=== PATIENT | female | born 1940 | race Caucasian/White ===

== ENCOUNTER → 2017-02-15 | Outpatient (CLI) | payer MEDICARE ==
[~2017-02-15] MED LIST: ASPI-1441 PO; BIMOD OP; DOXA8TAB62 PO; GEM600 PO; GEMF600T91 PO; GLI5 PO; GLIP-152 PO; INSU100I36 SQ; INSU300I SQ; IRBE300T11 PO; LABE200T31 PO; LOSA100T67 PO; MAX75 PO; MECL12.5 PO; METF-1 PO; METF-410 PO; MULT1TAB64 PO; PANT40TA65 PO; POTA20TA85 PO; POTA20TA94 PO; RANI-324 PO; TERA10CA44 PO; VERA240T12 PO; [UNRECOGNIZED DRUG - CODE] PO
== END ==
LOC: RESP 20:33
PROVIDERS: ATTEND Internal Medicine
DX: G47.33 Obstructive sleep apnea (adult) (pediatric) (principal); G47.61 Periodic limb movement disorder

== ENCOUNTER → 2017-04-16 | Outpatient (CLI) | payer MEDICARE ==
[2017-04-16 15:50] LABS: LDL CHOLESTEROL 73 mg/dl
== END ==
LOC: LAB 15:05
PROVIDERS: ATTEND Family Medicine
DX: E11.9 Type 2 diabetes mellitus without complications (principal); E87.6 Hypokalemia
CPT/HCPCS: 36415; 82040; 82247; 82310; 82374; 82435; 82465; 82565; 82947; 83036; 83718; 84075; 84132; 84155; 84295; 84450; 84460; 84478; 84520

== ENCOUNTER → 2017-05-26 | Outpatient (CLI) | payer MEDICARE ==
--- NOTE | 2017-05-27 09:02 | RADIOLOGY IMAGING REPORT ---
FACILITY: [facility] PATIENT NAME: LUCAS KERR : [id number] MR: [id number] V: [id number] EXAM DATE: [id number] ORDERING PHYSICIAN: ELVI ELIAS TECHNOLOGIST: Yaneth Martinez PROCEDURE:BILATERAL DIGITAL SCREENING MAMMOGRAM WITH CAD ASSISTED INTERPRETATION & 3D TOMOSYNTHESIS COMPARISON:Prior mammograms 05/21/16, 05/16/15, 05/12/14, 05/10/13, 05/07/12, 05/06/11. INDICATIONS:SCREENING FINDINGS: A small amount fibroglandular tissue is seen throughout the breasts. The parenchymal pattern has remained stable allowing for difference in mammographic technique & patient positioning. There is no evidence of malignant appearing mass, malignant appearing calcifications or other secondary sign of malignancy in either breast. DIAGNOSTIC CATEGORY 1--NEGATIVE. RECOMMENDATIONS: ROUTINE MAMMOGRAM AND CLINICAL EVALUATION. IMPRESSION: BIRADS 1: Negative No significant abnormality is seen. Dictated by: Sangeetha Carrillo M.D. on 05/26/2017 at 15:18 Transcribed by: FAVIAN on 05/26/2017 at 15:32 Approved by: Sangeetha Carrillo M.D. on 05/27/2017 at 9:01 [facility]
== END ==
LOC: MAMO 03:01
PROVIDERS: ATTEND Family Medicine
DX: Z12.31 Encounter for screening mammogram for malignant neoplasm of breast (principal)
CPT/HCPCS: 77063; 77067

== ENCOUNTER → 2017-08-25 | Outpatient (CLI) | payer MEDICARE ==
[~2017-08-25] MED LIST changes: -METF-410 PO; +METF-411 PO; +NEED-498 MC; -RANI-324 PO; +RANI-366 PO; +VERA180T53 PO
[2017-08-25 11:28] LABS: PLATELET COUNT, AUTOMATED 198 K/uL (150-450)
== END ==
LOC: LAB 11:00
PROVIDERS: ATTEND Family Medicine
DX: E11.9 Type 2 diabetes mellitus without complications (principal); I10 Essential (primary) hypertension
CPT/HCPCS: 36415; 82040; 82247; 82310; 82374; 82435; 82565; 82947; 83036; 84075; 84132; 84155; 84295; 84450; 84460; 84520; 85025

== ENCOUNTER → 2017-11-24 | Outpatient (CLI) | payer MEDICARE ==
[~2017-11-24] MED LIST changes: +ASPI-1471 PO; -GEMF600T91 PO; +GEMF600T92 PO; +HYDR12.561 PO; +LABE200T35 PO; -LOSA100T67 PO; +LOSA100T69 PO; -METF-411 PO; +METF-450 PO; +MULT-865 PO
== END ==
LOC: LAB 14:09
PROVIDERS: ATTEND Family Medicine
DX: I10 Essential (primary) hypertension (principal)
CPT/HCPCS: 36415; 82310; 82374; 82435; 82565; 82947; 84132; 84295; 84520

== ENCOUNTER → 2017-12-09 | Outpatient (CLI) | payer MEDICARE ==
[~2017-12-09] MED LIST changes: +SPIR25TA76 PO
== END ==
LOC: LAB 13:43
PROVIDERS: ATTEND Family Medicine
DX: I10 Essential (primary) hypertension (principal)
CPT/HCPCS: 36415; 82310; 82374; 82435; 82565; 82947; 84132; 84295; 84520

== ENCOUNTER → 2017-12-25 | Outpatient (CLI) | payer MEDICARE | LOC: LAB 14:30 | PROVIDERS: ATTEND Family Medicine | DX: I10 Essential (primary) hypertension (principal) | CPT/HCPCS: 36415; 82310; 82374; 82435; 82565; 82947; 84132; 84295; 84520 ==

== ENCOUNTER 2018-01-27 09:45 | Outpatient (RCR) | payer MEDICARE ==
--- NOTE | 2017-12-30 18:43 | PT INITIAL EVALUATION ---
MEDICAL DIAGNOSIS: M25.511 R shoulder pain, unspecified chronicity, M89.8X1 Shoulder blade pain TREATMENT DIAGNOSIS: Same, R rotator cuff tendinitis DATE OF ONSET: 08/24/17 SUBJECTIVE: Monalisa Florez presents to PT for insidious onset of R shoulder pain at vasquez glenohumeral joint and at times at the scapula. She's right-handed. She denies a history of R shoulder or cervical injury. Pain is an ache, 2- 5/10, disrupts sleep, makes reaching into upper cupboards/shelves, carrying 1 gallon water painful and difficult. Quick DASH 18% impairment. Monalisa relates she was seen at [facility] "years ago" for B hand and feet numbness and had her upper thoracic and lower cervical spine treated with PT, which resolved her paresthesia. 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 OCCUPATION: Retired, lives with her . Carrying heavy sacks of groceries creates the most R shoulder pain. OBJECTIVE: Posture: Protracted and depressed R shoulder, mild forward head and increased thoracic kyphosis. ROM: A/PROM R shoulder, in degrees: flexion 105/160, scaption 125/165, ER 73/85, IR T9/30 (at 90 deg.). Cervical AROM 75% rotation B, extension full but tight lower cervical extension. Strength: Supraspinatus 3+/5, pain limited, infraspinatus 4/5, pain limited, IR 5-/5, mendez muscles C5/6/7 intact for motor function. Palpation: Painful R upper rotator cuff tendons, tight R anterior chest, scaleni. Special Tests: Negative crank, scour, drawers, positive empty can. Mobility: Hypomobile R shoulder complex. ASSESSMENT: Monalisa Florez presents wtih R rotator cuff tendinitis, affecting strength, creating pain, and affecting sleep and reaching/carrying ADL's. She did well with gentle manual therapy to improve R shoulder protraction and is started on a shoulder HEP. We'll start with gentle manual therapy, stretching and muscle balancing strengthening, HEP, modalities as needed for pain. Short Term Goals/Patient's Goals: 4 weeks: Monalisa reports she's sleeping without R shoulder pain, carries R1 gallon water with R shoulder pain 3/10. 6 weeks: Monalisa relates she can carry 1 gallon of water with R shoulder pain 0-03/05. PLAN: Patient to be seen for Manual Therapy, Strengthening/condition, Ice/Heat, Range of Motion, Stretching, Electrical Stim, Home Exercise Program 2x/Week for 6 Weeks Thank you for this referral. If you have any questions, comments, or concerns about this report or plan, please contact me at . [facility]
[~2018-01-27 09:45] MED LIST changes: -GEMF600T92 PO; +GEMF600T96 PO; -LOSA100T69 PO; +LOSA100T75 PO
--- NOTE | 2018-02-03 17:17 | PT PLAN OF CARE ---
Physician: Dr. Joan Soto Patient is being seen: 2x/week Therapist: Vira Grier, PT Medical Diagnosis: M25.511 R shoulder pain, unspecified chronicity, M89.8X1 Shoulder blade pain Treatment Diagnosis: Same, R rotator cuff tendinitis Date of Onset: 08/24/17 Date of Initial Evaluation: 12/30/17 Date patient was last seen: 01/27/18 Number of treatments: 7 Number of cancellations/No shows: 1 INTERVENTIONS: Manual Therapy/STM/MET Strengthening/condition Ice/Heat Range of Motion Stretching Electrical Stim Home Exercise Program GOALS/PATIENT'S GOAL: 4 weeks: Monalisa reports she's sleeping without R shoulder pain, carries R1 gallon water with R shoulder pain 3/10. 6 weeks: Monalisa relates she can carry 1 gallon of water with R shoulder pain 0-1/10. Patient Compliance: Excellent Prognosis: Excellent Reasons for discontinuing therapy: S: Monalisa is admitted to [facility] due to illness. At her last visit here, she reported minimal R shoulder pain, sleeping without R shoulder pain. O: At last visit, L shoulder AROM 90 deg and PROM L shoulder flexion 180 degrees. Rotator cuff was still sore with light exercise. A/P: Monalisa Florez was improving R shoulder function (sleep) with PT. As she's as inpatient admission, I need to DC outpatient PT. If you'd like Monalisa to return to PT in the future, I'd be happy to work with her. Thank you. BORIS
== END 2018-01-27 18:00 | disposition home or self-care (01) ==
LOC: PT 09:45
PROVIDERS: ATTEND Family Medicine
DX: M25.511 Pain in right shoulder (principal); M89.8X1 Other specified disorders of bone, shoulder
CPT/HCPCS: 97162

== ENCOUNTER → 2018-01-28 | Outpatient (CLI) | payer MEDICARE ==
[~2018-01-28] MED LIST changes: +GEMF600T92 PO; -GEMF600T96 PO; +LOSA100T69 PO; -LOSA100T75 PO
== END ==
LOC: LAB 14:21
PROVIDERS: ATTEND Family Medicine
DX: E11.9 Type 2 diabetes mellitus without complications (principal); I10 Essential (primary) hypertension
CPT/HCPCS: 82310; 82374; 82435; 82565; 82947; 83036; 84132; 84295; 84520

== ENCOUNTER 2018-02-03 10:46 | Inpatient (IN) | payer MEDICARE ==
[~2018-02-03] VITALS: Ht 142.2 cm; Wt 70.5 kg
[~2018-02-03 10:46] MED LIST changes: -GEMF600T92 PO; +GEMF600T96 PO; -LOSA100T69 PO; +LOSA100T75 PO
--- NOTE | 2018-02-03 10:53 | ER Report ---
History and Physical Time Seen By MD: 10:53 HPI/ROS CHIEF COMPLAINT: Weakness, dehydration, shortness breath HISTORY OF PRESENT ILLNESS: Patient is a 77-year-old female with a history of diabetes, hypertension, reported heart failure here with complaints of shortness breath with initial oxygen saturation of 86% on room air only requiring noct urnal oxygen at baseline, was sent in by her PCP office after he fell on-call at which time she was complaining of fatigue, general malaise and was noted to be altered. Patient reports that since she has been having decreased by mouth intake, cough productive of white sputum, shortness of breath, general malaise, lethargy. Patient is alert and oriented though notably lethargic. Patient is afebrile at time of evaluation, hypotensive. REVIEW OF SYSTEMS: Constitutional: + fever, + chills. Eyes: No discharge. ENT: No sore throat, + dry mouth Cardiovascular: No chest pain, no palpitations. Respiratory: + cough, + shortness of breath. Gastrointestinal: No abdominal pain, no vomiting. Genitourinary: No hematuria. Musculoskeletal: No back pain. Skin: No rashes. Neurological: No headache. Allergies: Coded Allergies: procaine (Verified Allergy, Mild, PASSED OUT, 02/03/18) benazepril (Verified Adverse Reaction, Mild, COUGH, 02/03/18) Home Meds Active Scripts Spironolactone (ALDACTONE) 25 Mg Tablet, 1 TAB PO QDAY for 30 Days, #30 TAB Prov:ELVI ELIAS MD 01/06/18 Insulin Glargine,Hum.rec.anlog (Katharine Melendez) 300 Unit/1 Ml Insuln.pen, 8 UNITS SQ QAM, #2 BOX 3 Refills Prov:ELVI ELIAS MD 11/18/17 Metformin Hcl (METFORMIN HCL) 500 Mg Tablet, 1 TAB PO TID, #270 TAB 1 Refill Prov:ELVI ELIAS MD 11/18/17 Ranitidine Hcl (ZANTAC) 150 Mg Tablet, 150 MG PO BID for hiatal hernia for 90 Days, #180 TAB 4 Refills Prov:ELVI ELIAS MD 08/25/17 Verapamil Hcl (VERAPAMIL ER) 180 Mg Tablet.er, 180 MG PO BID for 90 Days, #180 TAB 4 Refills Prov:ELVI ELAIS MD 06/26/17 Terazosin Hcl (TERAZOSIN HCL) 10 Mg Capsule, 10 MG PO DAILY for 90 Days, #90 CAPSULE 4 Refills Prov:ELVI ELIAS MD 06/26/17 [place], Insulin Disposable (INSULIN PEN NEEDLE) 1 Each Dis.needle, EACH MC DIRECTED, #100 4 Refills Pen needles, patients preference in length Please send box of 100 pluse 4 refills Prov:ELVI ELIAS MD 06/26/17 Labetalol Hcl (LABETALOL HCL) 200 Mg Tablet, 3 TAB PO BID, #540 TAB 4 Refills Prov:ELVI ELIAS MD 05/19/17 Reported Medications Losartan Potassium (LOSARTAN POTASSIUM) 100 Mg Tablet, 100 MG PO QDAY 02/03/18 Potassium Chloride (KLOR-CON M20) 20 Meq Tab.er.prt, 1 TAB PO DAILY 02/03/18 Multivitamin (DAILY MULTIPLE VITAMIN) 1 Each Tablet, 1 TAB PO DAILY 11/24/17 Aspirin (ASPIR 81) 81 Mg Tablet.dr, 1 TAB PO QDAY, TAB 11/24/17 Discontinued Scripts Losartan Potassium (LOSARTAN POTASSIUM) 100 Mg Tablet, 1 TAB PO QDAY for 90 Days, #90 TAB 4 Refills Prov:ELVI ELIAS MD 08/25/17 Hx Smoking: No Smoking Status: Never Smoker Hx Alcohol Use: Yes (no longer uses due to diabetes & insulin) Constitutional Vital Sign - Last 24 Hours 02/03/18 02/03/18 02/03/18 02/03/18 10:47 11:08 11:31 11:31 Temp 97.7 Pulse 73 74 Resp 36 18 B/P (MAP) 93/53 Pulse Ox 92 94 O2 Delivery Nasal Cannula Nasal Cannula O2 Flow Rate 3.0 3.0 Physical Exam General Appearance: The patient is alert, has no immediate need for airway protection and no signs of toxicity. Moderate distress Eyes: Pupils equal and round no pallor or injection. ENT, Mouth: Mucous membranes are moist. Respiratory: + decreased BS without wheezes Cardiovascular: Regular rate and rhythm. Gastrointestinal: Abdomen is soft and non tender, no masses, bowel sounds normal. Neurological: Lethargic with no focal neuro deficits Skin: Warm and dry, no rashes. Musculoskeletal: Neck is supple non tender. Extremities are nontender, nonswollen and have full range of motion. DIFFERENTIAL DIAGNOSIS: After history and physical exam differential diagnosis was considered for pneumonia, CHF exacerbation, bronchitis, dehydration, electro lyte abnormality Medical Decision Making Data Points Result Diagram: 02/03/18 1055 02/03/18 1055 Laboratory Hematology Test 02/03/18 10:55 02/03/18 11:28 Red Blood Count 3.78 M/uL (4.17-5.56) Mean Corpuscular Volume 85.6 fL (80.0-96.0) Mean Corpuscular Hemoglobin 28.5 pg (26.0-33.0) Mean Corpuscular Hemoglobin Concent 33.3 g/dL (32.0-36.0) Red Cell Distribution Width 14.5 % (11.5-14.5) Mean Platelet Volume 8.7 fL (7.2-11.1) Neutrophils (%) (Auto) 90.5 % (39.4-72.5) Lymphocytes (%) (Auto) 2.2 % (17.6-49.6) Monocytes (%) (Auto) 5.4 % (4.1-12.4) Eosinophils (%) (Auto) 1.6 % (0.4-6.7) Basophils (%) (Auto) 0.3 % (0.3-1.4) Nucleated RBC Relative Count (auto) 0.1 /100WBC Neutrophils # (Auto) 19.1 K/uL (2.0-7.4) Lymphocytes # (Auto) 0.5 K/uL (1.3-3.6) Monocytes # (Auto) 1.1 K/uL (0.3-1.0) Eosinophils # (Auto) 0.3 K/uL (0.0-0.5) Basophils # (Auto) 0.1 K/uL (0.0-0.1) Nucleated RBC Absolute Count (auto) 0.02 K/uL Peripheral Blood Smear Yes Y/N Sodium Level 127 mmol/L (137-145) Potassium Level 5.1 mmol/L (3.5-5.0) Chloride Level 101 mmol/L (98-107) Carbon Dioxide Level 13 mmol/L (22-31) Blood Urea Nitrogen 93 mg/dl (7-18) Creatinine 3.00 mg/dl (0.52-1.04) Glomerular Filtration Rate Calc 15.1 Random Glucose 316 mg/dl (75-110) Lactate 2.9 mmol/L (0.7-2.1) Calcium Level 9.6 mg/dl (8.4-10.2) Total Bilirubin 0.6 mg/dl (0.2-1.3) Aspartate Amino Transf (AST/SGOT) 21 U/L (0-35) Alanine Aminotransferase (ALT/SGPT) 33 U/L (0-56) Alkaline Phosphatase 128 U/L (0-126) Troponin I 0.012 ng/ml B-Type Natriuretic Peptide 613 pg/ml (0-100) Total Protein 5.9 g/dl (6.3-8.2) Albumin 2.8 g/dl (3.5-5.0) Blood Gas Patient Temperature 97.7 DEGREES Venous Blood pH 7.26 (7.31-7.41) Venous Blood Partial Pressure CO2 26 mmHg Venous Blood Partial Pressure O2 63 mmHg Venous Blood HCO3 11 mmol/L Venous Blood Oxygen Saturation 90 % Venous Blood Base Excess -16 mmol/L Oxygen Liters/Minute 3l Chemistry Test 02/03/18 10:55 02/03/18 11:28 White Blood Count 21.1 k/uL (4.5-11.0) Red Blood Count 3.78 M/uL (4.17-5.56) Hemoglobin 10.8 g/dL (12.0-16.0) Hematocrit 32.3 % (34.0-47.0) Mean Corpuscular Volume 85.6 fL (80.0-96.0) Mean Corpuscular Hemoglobin 28.5 pg (26.0-33.0) Mean Corpuscular Hemoglobin Concent 33.3 g/dL (32.0-36.0) Red Cell Distribution Width 14.5 % (11.5-14.5) Platelet Count 133 K/uL (150-450) Mean Platelet Volume 8.7 fL (7.2-11.1) Neutrophils (%) (Auto) 90.5 % (39.4-72.5) Lymphocytes (%) (Auto) 2.2 % (17.6-49.6) Monocytes (%) (Auto) 5.4 % (4.1-12.4) Eosinophils (%) (Auto) 1.6 % (0.4-6.7) Basophils (%) (Auto) 0.3 % (0.3-1.4) Nucleated RBC Relative Count (auto) 0.1 /100WBC Neutrophils # (Auto) 19.1 K/uL (2.0-7.4) Lymphocytes # (Auto) 0.5 K/uL (1.3-3.6) Monocytes # (Auto) 1.1 K/uL (0.3-1.0) Eosinophils # (Auto) 0.3 K/uL (0.0-0.5) Basophils # (Auto) 0.1 K/uL (0.0-0.1) Nucleated RBC Absolute Count (auto) 0.02 K/uL Peripheral Blood Smear Yes Y/N Glomerular Filtration Rate Calc 15.1 Lactate 2.9 mmol/L (0.7-2.1) Calcium Level 9.6 mg/dl (8.4-10.2) Total Bilirubin 0.6 mg/dl (0.2-1.3) Aspartate Amino Transf (AST/SGOT) 21 U/L (0-35) Alanine Aminotransferase (ALT/SGPT) 33 U/L (0-56) Alkaline Phosphatase 128 U/L (0-126) Troponin I 0.012 ng/ml B-Type Natriuretic Peptide 613 pg/ml (0-100) Total Protein 5.9 g/dl (6.3-8.2) Albumin 2.8 g/dl (3.5-5.0) Blood Gas Patient Temperature 97.7 DEGREES Venous Blood pH 7.26 (7.31-7.41) Venous Blood Partial Pressure CO2 26 mmHg Venous Blood Partial Pressure O2 63 mmHg Venous Blood HCO3 11 mmol/L Venous Blood Oxygen Saturation 90 % Venous Blood Base Excess -16 mmol/L Oxygen Liters/Minute 3l EKG/Imaging EKG Interpretation Test Reason : SOB Blood Pressure : / mmHG Vent. Rate : 074 BPM Atrial Rate : 074 BPM P-R Int : 270 ms QRS Dur : 092 ms QT Int : 362 ms P-R-T Axes : 063 -52 051 degrees QTc Int : 401 ms Sinus rhythm with 1st degree AV block Left anterior fascicular block Moderate voltage criteria for LVH, may be normal variant Abnormal ECG When compared with ECG of 18-AUG-2013 10:18, QT has shortened Monitor Interpretation: Normal Sinus Rhythm Imaging Location: [facility] [place] Patient: Monalisa Florez : 1940 Visit/Account:[id number] Date of Sevice: 02/03/2018 Exam type: CHEST PA AND LAT History: RESP DISTRESS Comparison: None. Findings: Coarse linear stranding in the lower lung andres, left greater than right may represent scarring, atelectasis or developing infiltrates. There are no prior studies available. There is mild blunting the left costophrenic angle consistent with pleural thickening versus small pleural effusion. Cardiac silhouette is moderately enlarged. There is moderate ectasia the thoracic aort a. Extensive spondylotic changes of the thoracic spine are present IMPRESSION: 1. Coarsening stranding lower lung andres, left greater than right may represent scarring, atelectasis or developing infiltrates (are no prior studies available) Mild blunting left costophrenic angle consistent with pleural thickening versus small pleural effusion ED Course/Re-evaluation ED Course Patient is a 77-year-old female here with dehydration, decreased by mouth intake, cough, shortness of breath initially hypoxic per EMS on room air with no prior tirawl-ysa-inhid oxygen requirement. Patient was markedly dehydrated at time of evaluation with a leukocytosis of 21,000. Patient was noted to have acute renal failure likely prerenal in etiology. She was presumptively diagnosed with pneumonia and administered antimicrobial coverage and admitted to the hospitalist service in stable condition. Decision to Disposition Date: Feb 03, 2018 Decision to Disposition Time: 12:00 Depart Departure Latest Vital Signs Vital Signs Date Time Temp Pulse Resp B/P (MAP) Pulse Ox O2 Delivery O2 Flow Rate FiO2 02/03/18 11:31 94 Nasal Cannula 3.0 02/03/18 11:31 74 18 02/03/18 10:47 97.7 93/53 Impression: Primary Impression: ARF (acute renal failure) Additional Impression: Pneumonia, bacterial Condition: Condition Unchanged Disposition: Admitted from ER Referrals: ELVI ELIAS MD (PCP) Problem Qualifiers ISAMAR MAYNARD DO Feb 03, 2018 10:53
[2018-02-03] MEDS ORDERED: NS(*) 0.9% 500 ML BAG 500 ML IV ONE ×2 (11:01→22:05)
[2018-02-03] MEDS ORDERED: ALBUTEROL/IPRATROPIUM 3 ML NEB NEB ONE (11:05)
[2018-02-03 11:17] LABS: PLATELET COUNT, AUTOMATED 133 K/uL (150-450)
[2018-02-03] MEDS ORDERED: NS(*) 0.9% 1000 ML BAG 1,000 ML IV ONE (11:40)
[2018-02-03] MEDS ORDERED: VANCOMYCIN 1 GM ADDVIAL 1 GM in NS(*) 0.9% 250 ML ADDVAN BAG 250 ML IVPB ONE (11:50)
[2018-02-03] MEDS ORDERED: CEFEPIME HCL 1 GM VIAL IVP ONE (11:50)
--- NOTE | 2018-02-03 11:53 | RADIOLOGY IMAGING REPORT ---
FACILITY: [facility] PATIENT NAME: Monalisa Florez : 1940 MR: [id number] V: [id number] EXAM DATE: ORDERING PHYSICIAN: ISAMAR MAYNARD TECHNOLOGIST: [place] [facility] [place]: Monalisa Florez : 1940 Visit/Account:[id number] Date of Sevice: 02/03/2018 Exam type: CHEST PA AND LAT History: RESP DISTRESS Comparison: None. Findings: Coarse linear stranding in the lower lung andres, left greater than right may represent scarring, ate lectasis or developing infiltrates. There are no prior studies available. There is mild blunting th e left costophrenic angle consistent with pleural thickening versus small pleural effusion. Cardiac silhouette is moderately enlarged. There is moderate ectasia the thoracic aorta. Extensive spondylo tic changes of the thoracic spine are present IMPRESSION: 1. Coarsening stranding lower lung andres, left greater than right may represent scarring, atelectas is or developing infiltrates (are no prior studies available) Mild blunting left costophrenic angle consistent with pleural thickening versus small pleural effusio n Report Dictated By: Sangeetha Carrillo MD at 02/03/2018 11:47 AM Report E-Signed By: Sangeetha Carrillo MD at 02/03/2018 11:49 AM WSN:MAYA
[2018-02-03] MEDS ORDERED: VANCOMYCIN(*) 1 GM VIAL 2 GM in NS(*) 0.9% 500 ML BAG 500 ML IVPB ONE (12:30)
[2018-02-03] MEDS ORDERED: ALBUTEROL 2.5 MG/3 ML NEB NEB PRN (12:55)
[2018-02-03] MEDS ORDERED: VANCOMYCIN(*) 1 GM VIAL 2 GM in NS(*) 0.9% 250 ML BAG 250 ML IVPB ONE (13:00)
[2018-02-03] MEDS ORDERED: POTA20TA85 PO (13:01)
[2018-02-03] MEDS ORDERED: LOSA100T75 PO (13:03)
[2018-02-03 13:17] VITALS: BP 107/57
--- NOTE | 2018-02-03 13:46 | History & Physical ---
History of Present Illness History of Present Illness 77yo female with T2DM and BASIL who came to the ER because of confusion and cough. She reports that she was in her normal state of health until about 5 days prior to admission. Then she developed tiredness and had some diarrhea. The diarrhea didn't persist, but the tiredness has worsened and she is sleeping a lot. She then developed a productive cough with whitish sputum a couple of days ago. She reports not drinking as much as she should related to trying to take care of her and being so tired. She denies CP/BEATTY/f/c/dysuria/nausea/vomiting. She has felt more bloated in the abdomen. She called her PCP's office today and she sounded confused, so they had her go to the ER. In the ER, she was mildly hypoxic on RA in the mid s. She was given Cefepime and IVF. History Problems: (1) BASIL (obstructive sleep apnea) (2) Caregiver stress Status: Chronic (3) HTN (hypertension) Status: Chronic (4) DM2 (diabetes mellitus, type 2) Status: Acute (5) Hypertension Home Meds Active Scripts Spironolactone (ALDACTONE) 25 Mg Tablet, 1 TAB PO QDAY for 30 Days, #30 TAB Prov:ELVI ELIAS MD 01/06/18 Insulin Glargine,Hum.rec.anlog (Katharine Melendez) 300 Unit/1 Ml Insuln.pen, 8 UNITS SQ QAM, #2 BOX 3 Refills Prov:ELVI ELIAS MD 11/18/17 Metformin Hcl (METFORMIN HCL) 500 Mg Tablet, 1 TAB PO TID, #270 TAB 1 Refill Prov:ELVI ELIAS MD 11/18/17 Ranitidine Hcl (ZANTAC) 150 Mg Tablet, 150 MG PO BID for hiatal hernia for 90 Days, #180 TAB 4 Refills Prov:ELVI ELIAS MD 08/25/17 Verapamil Hcl (VERAPAMIL ER) 180 Mg Tablet.er, 180 MG PO BID for 90 Days, #180 TAB 4 Refills Prov:ELVI ELIAS MD 06/26/17 Terazosin Hcl (TERAZOSIN HCL) 10 Mg Capsule, 10 MG PO DAILY for 90 Days, #90 CAPSULE 4 Refills Prov:ELVI ELIAS MD 06/26/17 [place], Insulin Disposable (INSULIN PEN NEEDLE) 1 Each Dis.needle, EACH MC DIRECTED, #100 4 Refills Pen needles, patients preference in length Please send box of 100 pluse 4 refills Prov:ELVI ELIAS MD 06/26/17 Labetalol Hcl (LABETALOL HCL) 200 Mg Tablet, 3 TAB PO BID, #540 TAB 4 Refills Prov:ELVI ELIAS MD 05/19/17 Reported Medications Losartan Potassium (LOSARTAN POTASSIUM) 100 Mg Tablet, 100 MG PO QDAY 02/03/18 Potassium Chloride (KLOR-CON M20) 20 Meq Tab.er.prt, 1 TAB PO DAILY 02/03/18 Multivitamin (DAILY MULTIPLE VITAMIN) 1 Each Tablet, 1 TAB PO DAILY 11/24/17 Aspirin (ASPIR 81) 81 Mg Tablet.dr, 1 TAB PO QDAY, TAB 11/24/17 Discontinued Scripts Losartan Potassium (LOSARTAN POTASSIUM) 100 Mg Tablet, 1 TAB PO QDAY for 90 Days, #90 TAB 4 Refills Prov:ELVI ELIAS MD 08/25/17 Potassium Chloride (POTASSIUM CHLORIDE) 20 Meq Tab.er.prt, 1 TAB PO BID for 90 Days, #180 TAB 2 Refills Prov:ELVI ELIAS MD 10/23/17 Allergies: Coded Allergies: procaine (Verified Allergy, Mild, PASSED OUT, 02/03/18) benazepril (Verified Adverse Reaction, Mild, COUGH, 02/03/18) Other Social/Family Hx Lives with her and is his primary direct care staffer. He has fairly advanced dementia Hx Smoking: No Smoking Status: Never Smoker Caffeine Intake: Coffee, Tea Caffeine/Cups Per Day: RARE USE Hx Alcohol Use: Yes (no longer uses due to diabetes & insulin) Hx Substance Use Disorder: No Review of Systems All Systems Reviewed/Normal: Yes, Except as Noted Exam Vital Signs Vital Signs Date Time Temp Pulse Resp B/P (MAP) Pulse Ox O2 Delivery O2 Flow Rate FiO2 02/03/18 11:31 94 Nasal Cannula 3.0 02/03/18 11:31 74 18 02/03/18 10:47 97.7 93/53 General Appearance: Alert, Awake, No Acute Distress (Normal wob) Neuro: No Gross deficits Eyes: PERRLA ENT: Other (Dry MM) Cardiovascular: Regular Rate and Rhythm, No JVD Respiratory: Other (Moves air well to bases. Biabsliar insp crackles, but w orse on the left) GI: Abd Soft and Non-Tender Extremities: No Edema Integumentary: No Jaundice, No Cyanosis Medical Decision Making Data Points Result Diagram: 02/03/18 1055 02/03/18 1055 Item Value Date Time Lactate 2.9 mmol/L H 02/03/18 1055 Calcium Level 9.6 mg/dl 02/03/18 1055 Total Bilirubin 0.6 mg/dl 02/03/18 1055 Aspartate Amino Transf (AST/SGOT) 21 U/L 02/03/18 1055 Alanine Aminotransferase (ALT/SGPT) 33 U/L 02/03/18 1055 Alkaline Phosphatase 128 U/L H 02/03/18 1055 Troponin I 0.012 ng/ml 02/03/18 1055 B-Type Natriuretic Peptide 613 pg/ml H 02/03/18 1055 Total Protein 5.9 g/dl L 02/03/18 1055 Albumin 2.8 g/dl L 02/03/18 1055 Neutrophils (%) (Auto) 90.5 % H 02/03/18 1055 Lymphocytes (%) (Auto) 2.2 % L 02/03/18 1055 Monocytes (%) (Auto) 5.4 % 02/03/18 1055 Eosinophils (%) (Auto) 1.6 % 02/03/18 1055 Basophils (%) (Auto) 0.3 % 02/03/18 1055 Nucleated RBC Relative Count (auto) 0.1 /100WBC 02/03/18 1055 Venous Blood pH 7.26 L 02/03/18 1128 Venous Blood Partial Pressure O2 63 mmHg 02/03/18 1128 Venous Blood Partial Pressure CO2 26 mmHg 02/03/18 1128 Venous Blood HCO3 11 mmol/L 02/03/18 1128 Venous Blood Oxygen Saturation 90 % 02/03/18 1128 EKG / Imaging Imaging CXR - 1. Coarsening stranding lower lung andres, left greater than right may represent scarring, atelectasis or developing infiltrates (are no prior studies available) Mild blunting left costophrenic angle consistent with pleural thickening versus small pleural effusion Assessment and Plan Problems: (1) Pneumonia, bacterial Status: Acute Assessment & Plan: She presented with 5 days of progressive tiredness causing decreased oral intake and a couple days of productive cough. She was found to be borderline hypotensive, mildly hypoxic and very dehydrated. She has a leukocytosis, elevated lactate, elevated creatinine and left basilar infiltrate on CXR. She is getting IVF and will be changed from Cefepime to Ceftriaxone and Azithromycin. Recheck lactate. (2) ARF (acute renal failure) Status: Acute Assessment & Plan: Baseline creatinine is 0.9-1.0. Currently, she is 3.0. Likely, secondary to dehydration. Will follow closely. (3) DM2 (diabetes mellitus, type 2) Status: Acute Assessment & Plan: She normally has a fairly well controlled diabetes. Currently, holding her chronic Toujeo and metformin. She was mildly acidotic with a low bicarbonate and an AG of 13. Will recheck BMP and check a serum a cetone. For now will, will use SSI level 2 to cover, but if it appears like she is in DKA, then will likely need an insulin drip. (4) Elevated brain natriuretic peptide (BNP) level Status: Acute Assessment & Plan: Likely, related to the strain of illness. No signs or symptoms c/w CHF exacerbation. No h/o CHF. Will recheck CXR and BNP in the morning. (5) Caregiver stress Status: Chronic Assessment & Plan: She take care of her who has fairly advanced dem entia. Dr. Elias is looking into care options for him while the patient is in the hospital. (6) HTN (hypertension) Status: Chronic Assessment & Plan: Chronically on verapamil, spironolactone, losartan and labetalol. All will be held for now. (7) GERD (gastroesophageal reflux disease) Status: Chronic Assessment & Plan: Continue chronic ranitidine. (8) BASIL (obstructive sleep apnea) Status: Chronic Assessment & Plan: Continue CPAP at 6cm H20 pressure, like at home. Copies to: ELVI ELIAS MD ; Venous Thromboembolism Antithrombotics Is Pt On Any Antithrombotics?: No Exam Sepsis Risk: No Definite Risk MARTHA MENDIOLA MD Feb 03, 2018 13:46
[2018-02-03] MEDS: AZITHROMYCIN(*) 500 MG 500 MG in NS(*) 0.9% 250 ML BAG 250 ML IVPB SCH (13:47)
--- NOTE | 2018-02-03 14:08 | EKG ---
FACILITY: [facility] PATIENT NAME: LUCAS KERR : [id number] MR: [id number] V: [id number] EXAM DATE: ORDERING PHYSICIAN: ISAMAR MAYNARD TECHNOLOGIST: Test Reason : SOB Blood Pressure : / mmHG Vent. Rate : 074 BPM Atrial Rate : 074 BPM P-R Int : 270 ms QRS Dur : 092 ms QT Int : 362 ms P-R-T Axes : 063 -52 051 degrees QTc Int : 401 ms Sinus rhythm with 1st degree AV block R wave progression consistent with old ant/sep PA vs lead placement Moderate voltage criteria for LVH, may be normal variant Abnormal ECG When compared with ECG of 18-AUG-2013 10:18, Relatively unchanged Confirmed by MARTHA MENDIOLA ([id number]) on 02/03/2018 4:41:01 PM Referred By: Confirmed By:MARTHA MENDIOLA
[2018-02-03] MEDS: NS(*) 0.9% 1000 ML BAG 1,000 ML IV PRN ×2 (16:11→23:15)
[2018-02-03 17:31] VITALS: BP 117/61
[2018-02-03] MEDS: INSULIN HUM LISPRO 100 UN/ML 3 ML VIAL SUBQ PRN (17:36)
[2018-02-03] MEDS: ACETAMINOPHEN 500 MG TAB PO PRN (18:13)
[2018-02-03 19:24] VITALS: BP 105/57
[2018-02-03] MEDS: RANITIDINE HCL 150 MG TAB PO SCH (20:13)
[2018-02-03 23:57] VITALS: BP 108/56
[2018-02-04 06:01] LABS: PLATELET COUNT, AUTOMATED 112 K/uL (150-450)
--- NOTE | 2018-02-04 06:24 | RADIOLOGY IMAGING REPORT ---
FACILITY[place] [facility] [place]IENT NAME: Monalisa Florez : 1940 MR: [id number] V: [id number] EXAM DATE: ORDERING PHYSICIAN: MARTHA MENDIOLA TECHNOLOGIST: Location: [facility] - [place] Patient: Monalisa Florez : 1940 Visit/Account:[id number] Date of Sevice: 02/04/2018 PORTABLE CHEST: Indication: Hypoxia. Technique: A single frontal film was obtained. Comparison: 02/03/2018 Skeletal and soft tissue structures: Intact and unremarkable. Heart and mediastinum: Stable mild cardiomegaly. Lung andres: There are persistent linear opacities at the left base, compatible with atelectasis or r esolving pneumonia. The right base has improved. No new focal opacities are identified. Pleural spaces: No evidence of pneumothorax. Possible small left effusion. Impression: Improving basilar opacities. Report Dictated By: Dagoberto Avalos MD at 02/04/2018 6:18 AM Report E-Signed By: Dagoberto Avalos MD at 02/04/2018 6:20 AM WSN:[id number]
[2018-02-04] MEDS: INSULIN HUM LISPRO 100 UN/ML 3 ML VIAL SUBQ PRN ×4 (07:43→20:48)
[2018-02-04] MEDS: RANITIDINE HCL 150 MG TAB PO SCH ×2 (09:13→20:48)
[2018-02-04] MEDS: cefTRIAXone(*) 2 GM VIAL 2 GM in NS(*) 0.9% 100 ML ADDVANT BAG 100 ML IVPB SCH (09:13)
[2018-02-04] MEDS: ENOXAPARIN 30 MG/0.3 ML SYR SC SCH (09:13)
--- NOTE | 2018-02-04 09:35 | Hospitalist Progress Note ---
Subjective Progress Notes Subjective 77F admitted for AMS, sepsis. Improved mentation this am, discussed will be 2-3 more days on IV antibiotics and will need 2 weeks total on discharge. Patient Complains of: Neurological: No: Confusion Gastrointestinal: No Nausea, No Vomiting Physical Exam Vital Signs Date Time Temp Pulse Resp B/P (MAP) Pulse Ox O2 Delivery O2 Flow Rate FiO2 02/04/18 02:04 50.0 02/03/18 23:57 97.8 73 16 108/56 (73) 98 Bi-PAP 02/03/18 20:15 3.0 Intake and Output 02/04/18 07:00 Intake Total 2968 ml Balance 2968 ml Intake Oral 200 ml IV Total 2768 ml # Voids 2 # Bowel Movements 2 General Appearance: Alert, Awake, No Acute Distress Neuro: No Gross deficits Eyes: PERRLA ENT: Normal Cardiovascular: Normal Rhythm & Peripheral Pulses Respiratory: No Respiratory Distress (3L O2 via NC) GI: Soft and Non-Tender Musculoskeletal: No Weakness/Pain Extremities: Soft and Non Tender, Warm, Pulses, Perfused; No Edema Integumentary: Skin Intact without Lesion / Mass Psych: Alert & Oriented X3 Result Diagram: 02/04/1852602/04/18526 Assessment and Plan Problems: (1) Pneumonia, bacterial Status: Acute Assessment & Plan: She presented with 5 days of progressive tiredness causing decreased oral intake and a couple days of productive cough. She was found to be borderline hypotensive, mildly hypoxic and very dehydrated. She has a leukocytosis, elevated lactate, elevated creatinine and left basilar infiltrate on CXR. She is getting IVF and Ceftriaxone and Azithromycin. (2) ARF (acute renal failure) Status: Acute Assessment & Plan: Baseline creatinine is 0.9-1.0. Currently, she is 3.0. Likely, secondary to dehydration. Remains elevated with slight improvement. (3) Metabolic acidosis Assessment & Plan: Mild, NAGMA. Bicarb remains low will change fluid to 150meq bicarb/D5W. Recheck BMP this PM. (4) DM2 (diabetes mellitus, type 2) Status: Acute Assessment & Plan: She normally has a fairly well controlled diabetes. Currently, holding her chronic Toujeo and metformin. She was mildly acidotic with a low bicarbonate and an AG of 13. Will recheck BMP and check a serum acetone. For now will, will use SSI level 2 to cover, but if it appears like she is in DKA, then will likely need an insulin drip. (5) Elevated brain natriuretic peptide (BNP) level Status: Acute Assessment & Plan: Likely, related to the strain of illness. No signs or symptoms c/w CHF exacerbation. No h/o CHF. (6) Caregiver stress Status: Chronic Assessment & Plan: She take care of her who has fairly advanced dementia. Dr. Soto is looking into care options for him while the patient is in the hospital. (7) HTN (hypertension) Status: Chronic Assessment & Plan: Chronically on verapamil, spironolactone, losartan and labetalol. All will be held for now. (8) GERD (gastroesophageal reflux disease) Status: Chronic Assessment & Plan: Continue chronic ranitidine. (9) BASIL (obstructive sleep apnea) Status: Chronic Assessment & Plan: Continue CPAP at 6cm H20 pressure, like at home. Exam Sepsis Risk: No Definite Risk CARVALHO BALDOMERO GRAYSON DO Feb 04, 2018 09:35
[2018-02-04] MEDS: SODIUM BICAR 8.4%* 50 MEQ/50ML 150 MEQ in D5W(*) 1000 ML BAG 1,000 ML IV SCH (11:03)
[2018-02-04 11:43] VITALS: BP_SYST 108; BP_SYST 141; BP_DIAS 56; BP_DIAS 73
[2018-02-04] MEDS: AZITHROMYCIN(*) 500 MG 500 MG in NS(*) 0.9% 250 ML BAG 250 ML IVPB SCH (13:29)
[2018-02-04 14:53] VITALS: BP 131/67
[2018-02-04 17:05] VITALS: Ht 142.2 cm; Wt 70.5 kg
[2018-02-04 19:19] VITALS: BP 137/72
[2018-02-04] MEDS ORDERED: SODIUM CHLORIDE 1 GR TAB PO ONE (21:00)
[2018-02-05] VITALS (9 sets, daily range): BP systolic 95–133; BP diastolic 60–86
[2018-02-05] MEDS: SODIUM BICAR 8.4%* 50 MEQ/50ML 150 MEQ in D5W(*) 1000 ML BAG 1,000 ML IV SCH (00:01)
[2018-02-05 06:27] LABS: PLATELET COUNT, AUTOMATED 104 K/uL (150-450)
[2018-02-05] MEDS: INSULIN HUM LISPRO 100 UN/ML 3 ML VIAL SUBQ PRN ×4 (07:36→20:40)
[2018-02-05] MEDS ORDERED: KCL 2 MEQ/ML 20 MEQ/10 ML VIAL 20 MEQ in NS(*) 0.9% 1000 ML BAG 1,000 ML IV PRN (09:12)
[2018-02-05] MEDS: RANITIDINE HCL 150 MG TAB PO SCH ×2 (09:20→20:40)
[2018-02-05] MEDS: ENOXAPARIN 30 MG/0.3 ML SYR SC SCH (09:20)
[2018-02-05] MEDS: cefTRIAXone(*) 2 GM VIAL 2 GM in NS(*) 0.9% 100 ML ADDVANT BAG 100 ML IVPB SCH (09:20)
--- NOTE | 2018-02-05 10:33 | Hospitalist Progress Note ---
Subjective Progress Notes Subjective She is awake and alert. Oriented to person, place, and time. Afebrile this AM. Physical Exam Vital Signs Date Time Temp Pulse Resp B/P (MAP) Pulse Ox O2 Delivery O2 Flow Rate FiO2 02/05/18 07:35 97 Nasal Cannula 3.0 02/05/18 07:20 98.8 119 24 102/86 (91) 02/05/18 01:10 50.0 Intake and Output 02/05/18 06:59 Intake Total 1264 ml Balance 1264 ml IV Total 1264 ml # Voids 6 # Bowel Movements 3 General Appearance: Alert, Awake Neuro: Other (she moves all four extremities normally/purposefully) Cardiovascular: Other (Slightly tachycardic somewhat irregular) Respiratory: Other (rales in both bases slight greater on left) GI: Soft and Non-Tender Extremities: Warm, Perfused Psych: Alert & Oriented X3 Result Diagram: 02/05/1854102/05/18 0542 Assessment and Plan Problems: (1) Pneumonia, bacterial Status: Acute Assessment & Plan: Slightly improved. She presented with 5 days of progressive tiredness causing decreased oral intake and a couple days of productive cough. She was found to be borderline hypotensive, mildly hypoxic and dehydrated. She had a leukocytosis, elevated lactate, elevated creatinine, and left basilar infiltrate on CXR. She is getting IVF and IV Ceftriaxone and Azithromycin. Blood cultures growing E. coli sensitive to ceftriaxone. (2) ARF (acute renal failure) Status: Acute Assessment & Plan: Improved. Baseline creatinine has been 0.9-1.0. Currently, she is 2.3 (3.0 at admission). Likely, secondary to dehydration and sepsis. (3) Metabolic acidosis Assessment & Plan: Mild. Continue treatment of her acute illness. Continue IV fluids. Watch labs closely. (4) DM2 (diabetes mellitus, type 2) Status: Acute Assessment & Plan: She normally has a fairly well controlled diabetes. Currently, holding her chronic Toujeo and metformin. For now will, will use SSI level 2 to cover. (5) Elevated brain natriuretic peptide (BNP) level Status: Acute Assessment & Plan: Likely, related to the strain of illness. Watch closely. Consider checking echocardiogram. (6) Caregiver stress Status: Chronic Assessment & Plan: She take care of her who has fairly advanced dementia. Dr. Soto is looking into care options for him while the patient is in the hospital. (7) HTN (hypertension) Status: Chronic Assessment & Plan: Chronically on verapamil, spironolactone, losartan and labetalol. All on hold for now. (8) GERD (gastroesophageal reflux disease) Status: Chronic Assessment & Plan: Continue chronic ranitidine. (9) BASIL (obstructive sleep apnea) Status: Chronic Assessment & Plan: Continue CPAP at 6cm H20 pressure, as at home. Exam Sepsis Risk: Severe Sepsis Risk NIKOLAS SHOEMAKER MD Feb 05, 2018 10:33
[2018-02-05] MEDS ORDERED: DIGOXIN 0.5 MG/2 ML AMP IVP ONE ×4 (11:05→20:00)
--- NOTE | 2018-02-05 11:18 | Antimicrobial Stewardship ---
Antimicrobial Stewardship Empiricly appropriate: Yes (02/03- cefepime x 1, now ceftriaxone and azithromycin) Significant PMH: Yes (DM Type 2, HTN, CHF) Support empiric regimen: Yes Approriate Cultures done: Yes (Blood Cultures x 2 ) Organism identified: Yes (Blood Cx (+) e. coli x 2) Review the antibiotic sensitiv: Yes (Sensitive to ceftriaxone) Reviewed for Drug Interaction: Yes Monitored for Toxicities: Yes IV to PO Opportunity: No Comment Switch to PO when wbcs are wnl and afebrile Determine cumulative duration: Today is day 3 Determine standard duration: 14 days Comment 77 yo F with a PMH of DM2, HTN, and CHF who presented with weakness, dehydration, and SOB. Upon presentation to the ED her oxygen saturations were in the 80s, she reported fever, chills, cough and SOB. Tmax WBC 21.1 Plt 133 Scr 3 Na 127 BNP 613 Lactate 2.9 02/03: Blood Cultures x 2 -- e. coli sensitive to all antibiotics except Bactrim 02/03: UA - showed leukocyte esterase, WBC 40, moderate squamous epi's, amorphous crystals, few bacteria Continue azithromycin x 5 days, ceftriaxone to complete 14 days. Transition to oral antibioitics when WBCs are wnl. Cefdinir 300mg po BID to complete 14 days. Shayy Gonzalez, PharmD, BCOP SHAYY GONZALEZ Feb 05, 2018 11:18
[2018-02-05] MEDS: SODIUM CHLORIDE 1 GR TAB PO SCH (11:50)
--- NOTE | 2018-02-05 12:36 | EKG ---
FACILITY: [facility] - [place] PATIENT NAME: LUCAS KERR : [id number] MR: [id number] V: [id number] EXAM DATE: ORDERING PHYSICIAN: NIKOLAS SHOEMAKER TECHNOLOGIST: JOIE Test Reason : MED SURG Blood Pressure : / mmHG Vent. Rate : 149 BPM Atrial Rate : 312 BPM P-R Int : 000 ms QRS Dur : 090 ms QT Int : 272 ms P-R-T Axes : 000 -53 122 degrees QTc Int : 428 ms Atrial fibrillation with rapid ventricular response Left axis deviation Decreased R wave progression anteriorly Abnormal ECG Confirmed by NIKOLAS SHOEMAKER ([id number]) on 02/05/2018 3:29:25 PM Referred By: DEVEN GRAYSON Confirmed By:NIKOLAS SHOEMAKER
[2018-02-05] MEDS ORDERED: IV BOLUS 500 ML IVSOL IV ONE (13:50)
[2018-02-05] MEDS ORDERED: ALBUMIN HUMAN 5% 250 ML BTL 250 ML IVPB ONE (14:45)
--- NOTE | 2018-02-05 16:52 | Medical Nutrition Therapy ---
Nutrition Anthropometrics Height (Inches): 56.00 Height (Calculated Centimeters: 142.858404 Weight (Pounds): 151 Weight (Calculated Kilograms): 68.606 BMI: 33.9 Thomas Nutrition Score: Adequate Thomas Nutrition Risk Score: 20 Dietary Referral Nutrition Risk Factors: Special Diet Nutrition Risk Comment: 1800 ADA Physical Findings Physical Appearance: Obese BMI 30-39 Skin Appearance Skin Appearance: Edema Edema Location Modifier: Edema Location: Type of Edema: Degree of Edema: Gastrointestinal Symptoms GI Symtoms: Tube Present: Bowel Sounds: Recent Bowel Pattern: Stool Characteristics: Nutritional Diagnosis Nutritional Risk Acuity 1: Acute/ES Renal Nutritional Risk Acuity 2: Blood Glucose > 300mg/dl Nutritional Acuity: 1-High Nutrition Diagnosis: Inconsistent Carb. Intake Nutrition Etiology: Physiological Causes Nutrition Problem/Etiology/Sym: AEB BG 310 Adjusted Energy Requirement Re: 1700 (25 kcal/kg) Protein Requirement: 54 (.8 gm/kg) Fluid Requirement: 1700 (25 ml/kg) Diet Type: Diabetic Nutrition Intervention: Cont diet as ordered, Encourage intake Nutrition Monitoring & Eval Nutrition Goals: Eat 75-100% Meal RD Patient Assessment Time: [address] Assessment Type: RD Screen Patient Nutrition Acuity: 1-High Follow Up Date: Feb 08, 2018 Nutritional Comment: 02/04 Pt admitted with pneumonia and ARF. BUN 90. creatinine 2.3. A;lb 2.1. BG elevated up t o316. Pt has hx of T2DM, Pt on diabetic diet but refused intake yesterday and no intake reported for today. Will f/u and encourage intake. BK 02/05 Pt cont on diabetic diet, eating 75-100% of meals today. BG ranging 195- 310. Pt is recieving insulin. K+ 3.3, pt is recieving K+ supplment. BUN cont elevated at 83, creatinine cont elevated at 2.3 but has improved. cont to monitor and encourage intake. ZAC FLORES Feb 05, 2018 16:52
[2018-02-05] MEDS ORDERED: METOPROLOL TART 5 MG/5 ML VIAL IVP ONE (23:05)
[2018-02-05] MEDS: KCL/NS* 20 MEQ/1000 ML PREMIX 1,000 ML IV PRN (23:25)
[2018-02-06] VITALS (10 sets, daily range): BP systolic 90–175; BP diastolic 52–96
[2018-02-06] MEDS ORDERED: METOPROLOL TART 5 MG/5 ML VIAL IVP ONE (01:10)
[2018-02-06 06:16] LABS: PLATELET COUNT, AUTOMATED 129 K/uL (150-450)
[2018-02-06] MEDS ORDERED: DIGOXIN 0.5 MG/2 ML AMP IVP ONE (06:20)
[2018-02-06] MEDS ORDERED: METOPROLOL TART 5 MG/5 ML VIAL IVP PRN (06:20)
[2018-02-06] MEDS: INSULIN HUM LISPRO 100 UN/ML 3 ML VIAL SUBQ PRN ×4 (07:56→20:28)
[2018-02-06] MEDS ORDERED: INFLUENZA VIRUS VAC 0.5ML SYR IM ONLY ONE (09:00)
[2018-02-06] MEDS: cefTRIAXone(*) 2 GM VIAL 2 GM in NS(*) 0.9% 100 ML ADDVANT BAG 100 ML IVPB SCH (09:25)
[2018-02-06] MEDS: LABETALOL HCL 100 MG TAB PO SCH ×2 (09:26→20:29)
[2018-02-06] MEDS: VERAPAMIL HCL SR 180 MG TABCR PO SCH ×2 (09:26→20:29)
[2018-02-06] MEDS: ENOXAPARIN 100 MG/ML SYR SC SCH (09:26)
[2018-02-06] MEDS: RANITIDINE HCL 150 MG TAB PO SCH ×2 (09:26→20:29)
--- NOTE | 2018-02-06 09:43 | Hospitalist Progress Note ---
Subjective Progress Notes Subjective This patient was admitted for possible pneumonia. She had no acute events overnight. Patient Complains of: Cardiovascular: No: Chest Pain Respiratory: No: Shortness of Breath Physical Exam Vital Signs Date Time Temp Pulse Resp B/P (MAP) Pulse Ox O2 Delivery O2 Flow Rate FiO2 02/06/18 06:58 98.6 124 22 116/85 (95) 95 Nasal Cannula 3.0 02/06/18 03:21 50.0 Intake and Output 02/06/18 07:00 Intake Total 1375 ml Balance 1375 ml Intake Oral 0 ml IV Total 1375 ml # Voids 7 # Bowel Movements 5 Cardiovascular: Other (Tachycardic and irregular.) Respiratory: Clear to Auscultation Result Diagram: 02/06/18 0602 02/06/18 0602 Item Value Date Time Blood Culture - Final Complete 02/03/18 1055 Blood Peripheral Draw Assessment and Plan Problems: (1) Sepsis Assessment & Plan: Her blood cultures are both positive for E. coli. She is on treatment with ceftriaxone. Her WBC is trending down and her fever has resolved. The suspected source is urinary, but her urinalysis was a contaminated sample and a urine culture is not available. (2) Pneumonia, bacterial Status: Acute Assessment & Plan: Her initial chest x-ray was reported to show basilar infiltrates. She was initially started on ceftriaxone and azithromycin, but the azithromycin has now been discontinued. (3) ARF (acute renal failure) Status: Acute Assessment & Plan: Her creatinine is gradually improving. (4) Metabolic acidosis Assessment & Plan: Resolving. (5) DM2 (diabetes mellitus, type 2) Status: Acute Assessment & Plan: She is on chronic treatment with metformin and Toujeo, which are both on hold. She is receiving sliding scale level #2. (6) Caregiver stress Status: Chronic Assessment & Plan: She take care of her who has fairly advanced dementia. Dr. Soto is looking into care options for him while the patient is in the hospital. (7) HTN (hypertension) Status: Chronic Assessment & Plan: Chronically on verapamil, spironolactone, losartan and labetalol. The labetalol and verapamil have been restarted. (8) GERD (gastroesophageal reflux disease) Status: Chronic Assessment & Plan: Continue chronic ranitidine. (9) BASIL (obstructive sleep apnea) Status: Chronic Assessment & Plan: Continue CPAP at 6cm H20 pressure, as at home. (10) Atrial fibrillation with RVR Assessment & Plan: She did develop atrial fibrillation with a rapid response overnight. She received a loading dose of digoxin, but remained tachycardic this morning. We have restarted the verapamil and labetalol from her home medications. Exam Sepsis Risk: Severe Sepsis Risk MADELINE ATKINS DO Feb 06, 2018 09:43
[2018-02-06] MEDS: SODIUM CHLORIDE 1 GR TAB PO SCH (11:32)
[2018-02-06] MEDS: KCL/NS* 20 MEQ/1000 ML PREMIX 1,000 ML IV PRN (12:01)
[2018-02-07] VITALS (7 sets, daily range): BP systolic 92–133; BP diastolic 51–71
[2018-02-07 05:40] LABS: PLATELET COUNT, AUTOMATED 152 K/uL (150-450)
[2018-02-07] MEDS: ACETAMINOPHEN 500 MG TAB PO PRN (07:02)
[2018-02-07] MEDS: guaiFENesin SYRP 100MG/5ML UDC PO PRN ×3 (07:02→19:13)
[2018-02-07] MEDS: INSULIN HUM LISPRO 100 UN/ML 3 ML VIAL SUBQ PRN ×4 (07:13→20:56)
[2018-02-07] MEDS ORDERED: LABETALOL HCL 100 MG TAB PO SCH (09:00)
[2018-02-07] MEDS: VERAPAMIL HCL SR 180 MG TABCR PO SCH ×2 (10:22→20:56)
[2018-02-07] MEDS: SODIUM BICARBONATE 650 MG TAB PO SCH ×2 (10:22→12:21)
[2018-02-07] MEDS: ENOXAPARIN 100 MG/ML SYR SC SCH (10:22)
[2018-02-07] MEDS: RANITIDINE HCL 150 MG TAB PO SCH ×2 (10:22→16:57)
[2018-02-07] MEDS: LABETALOL HCL 100 MG TAB PO SCH ×2 (10:23→20:56)
[2018-02-07] MEDS: cefTRIAXone(*) 2 GM VIAL 2 GM in NS(*) 0.9% 100 ML ADDVANT BAG 100 ML IVPB SCH (11:30)
[2018-02-07] MEDS: SODIUM CHLORIDE 1 GR TAB PO SCH (12:21)
--- NOTE | 2018-02-07 14:14 | Hospitalist Progress Note ---
Subjective Progress Notes Subjective 77F admitted for gram negative bacteremia, sepsis. SALLY overnight, continues to slowly improve. Patient Complains of: Cardiovascular: No: Chest Pain, Palpitations Respiratory: Cough; No: Shortness of Breath Genitourinary: No Dysuria Physical Exam Vital Signs Date Time Temp Pulse Resp B/P (MAP) Pulse Ox O2 Delivery O2 Flow Rate FiO2 02/07/18 12:28 97.6 71 18 108/71 (83) 96 Nasal Cannula 2.0 02/07/18 02:46 50.0 Intake and Output 02/07/18 07:00 Intake Total 1760 ml Balance 1760 ml Intake Oral 1436 ml IV Total 324 ml # Voids 5 # Bowel Movements 3 General Appearance: Alert, Awake, No Acute Distress Neuro: No Gross deficits ENT: Normal Cardiovascular: Normal Rhythm & Peripheral Pulses Respiratory: No Respiratory Distress GI: Soft and Non-Tender Musculoskeletal: No Weakness/Pain Extremities: Soft and Non Tender, Warm, Pulses, Perfused Integumentary: Skin Intact without Lesion / Mass Result Diagram: 02/07/1851302/07/18513 Assessment and Plan Problems: (1) Sepsis Assessment & Plan: Her blood cultures are both positive for E. coli. She is on treatment with ceftriaxone. Her WBC is trending down and her fever has resolved. The suspected source is urinary, but her urinalysis was a contaminated sample and a urine culture is not available. (2) Pneumonia, bacterial Status: Acute Assessment & Plan: Her initial chest x-ray was reported to show basilar infiltrates. She was initially started on ceftriaxone and azithromycin, but the azithromycin has now been discontinued. (3) ARF (acute renal failure) Status: Acute Assessment & Plan: Creatinine improved but has plateaued. Given anemia SPEP, kappa/lambda, renal US, Ur Cr, protein, Na ordered for further evaluation. (4) Metabolic acidosis Assessment & Plan: Resolving. Started on sodium bicarb tablet bid. (5) DM2 (diabetes mellitus, type 2) Status: Acute Assessment & Plan: She is on chronic treatment with metformin and Toujeo, which are both on hold. She is receiving sliding scale level #2. (6) Caregiver stress Status: Chronic Assessment & Plan: She take care of her who has fairly advanced dementia. Dr. Soto is looking into care options for him while the patient is in the hospital. (7) HTN (hypertension) Status: Chronic Assessment & Plan: Chronically on verapamil, spironolactone, losartan and labetalol. The labetalol and verapamil have been restarted. (8) GERD (gastroesophageal reflux disease) Status: Chronic Assessment & Plan: Continue chronic ranitidine. (9) BASIL (obstructive sleep apnea) Status: Chronic Assessment & Plan: Continue CPAP at 6cm H20 pressure, as at home. (10) Atrial fibrillation with RVR Assessment & Plan: She did develop atrial fibrillation with a rapid response overnight. She received a loading dose of digoxin, but remained tachycardic this morning. We have restarted the verapamil and labetalol from her home medications. Labetalol dose reduced due to borderline low blood pressures. Exam Sepsis Risk: No Definite Risk CARVALHO BALDOMERO GRAYSON DO Feb 07, 2018 14:14
--- NOTE | 2018-02-07 17:05 | RADIOLOGY IMAGING REPORT ---
FACILITY: [facility] - [place] PATIENT NAME: Monalisa Florez : 1940 MR: [id number] V: [id number] EXAM DATE: ORDERING PHYSICIAN: BALDOMERO GRAYSON TECHNOLOGIST: Location: [facility] - [place] Patient: Monalisa Florez : 1940 Visit/Account:[id number] Date of Sevice: 02/07/2018 Examination: Ultrasound of the kidneys and urinary bladder Comparison: None. History: NOEL Findings: Standard ultrasound of the kidneys and urinary bladder is performed. Right kidney: 11.2 x 5.9 x 4.8 cm . Upper pole 1.6 x 1.0 x 1.6 cm cyst. No renal mass or hydronephros is. Mildly increased resistive index of 0.78 on Doppler interrogation. Left kidney: 11.3 x 5.2 x 5.5 cm . Midpole 9 x 7 x 11 mm cyst. Cortical echogenicity is normal. No re nal mass or hydronephrosis. Mildly increased resistive index of 0.76 on Doppler interrogation. Urinary bladder: Both ureteral jets are present. Visualized aorta and IVC: Patent. IMPRESSION: 1. No renal mass or hydronephrosis. 2. Bilateral kidney mildly increased cortical arterial resistive index is suggestive of medical renal disease. Report Dictated By: Tong Mendoza MD at 02/07/2018 4:57 PM Report E-Signed By: Tong Mendoza MD at 02/07/2018 5:01 PM WSN:[id number]
[2018-02-07] MEDS: PHENOL SPRAY 120 ML BTL MT PRN (20:59)
[2018-02-08] VITALS (7 sets, daily range): BP systolic 108–167; BP diastolic 54–87
[2018-02-08] MEDS: guaiFENesin SYRP 100MG/5ML UDC PO PRN (02:51)
[2018-02-08 06:11] LABS: PLATELET COUNT, AUTOMATED 198 K/uL (150-450)
[2018-02-08] MEDS: INSULIN HUM LISPRO 100 UN/ML 3 ML VIAL SUBQ PRN ×4 (08:04→21:35)
[2018-02-08] MEDS: RANITIDINE HCL 150 MG TAB PO SCH ×2 (08:04→17:17)
[2018-02-08] MEDS: SODIUM BICARBONATE 650 MG TAB PO SCH ×2 (08:04→11:58)
[2018-02-08] MEDS: PHENOL SPRAY 120 ML BTL MT PRN (08:05)
--- NOTE | 2018-02-08 08:32 | Hospitalist Progress Note ---
Subjective Progress Notes Subjective She reports feeling "a little puffy", but overall improved. Physical Exam Vital Signs Date Time Temp Pulse Resp B/P (MAP) Pulse Ox O2 Delivery O2 Flow Rate FiO2 02/08/18 08:12 86 02/08/18 07:49 98.1 71 20 108/61 (77) Nasal Cannula 0.5 02/07/18 02:46 50.0 Intake and Output 02/08/18 06:59 Intake Total 1060 ml Balance 1060 ml Intake Oral 1060 ml # Voids 7 # Bowel Movements 5 General Appearance: Alert, Awake Cardiovascular: Regular Rate and Rhythm Respiratory: Other (a few scattered rhonchi/no wheezes) GI: Soft and Non-Tender Extremities: Warm, Perfused, Edema (trace lower extremity edema) Integumentary: Generalized Fragile Skin Psych: Alert & Oriented X3 Result Diagram: 02/08/18 0502/08/18 05 Assessment and Plan Problems: (1) Sepsis Status: Acute Assessment & Plan: Her blood cultures are both positive for E. coli. She is on treatment with IV ceftriaxone. Her WBC is trending down. Her fever is improved, but had a temp of 100.0F a little less than 48hrs ago. The suspected source is urinary vs. pulmonary. Unfortunately, her urinalysis was a contaminated sample and a urine culture is not available. (2) Pneumonia, bacterial Status: Acute Assessment & Plan: Her initial chest x-ray was reported to show basilar infiltrates. She was initially started on ceftriaxone and azithromycin, but the azithromycin has now been discontinued. (3) ARF (acute renal failure) Status: Acute Assessment & Plan: Creatinine improved. Given anemia SPEP, kappa/lambda, renal US, Ur Cr - protein - Na+ ordered for further evaluation. (4) Metabolic acidosis Assessment & Plan: Resolving. Started on sodium bicarbonate tablet bid. (5) DM2 (diabetes mellitus, type 2) Status: Acute Assessment & Plan: She has been on chronic treatment with metformin and Toujeo, which are both on hold. She is receiving sliding scale level #2. (6) Caregiver stress Status: Chronic Assessment & Plan: She take care of her who has fairly advanced dementia. Dr. Soto is looking into care options for him while the patient is in the hospital. (7) HTN (hypertension) Status: Chronic Assessment & Plan: Chronically on verapamil, spironolactone, losartan and labetalol. The labetalol and verapamil were restarted, but her BPs have been on lower side. Will modify regimen to once daily verapamil 180mg. (8) GERD (gastroesophageal reflux disease) Status: Chronic Assessment & Plan: Continue chronic ranitidine. (9) BASIL (obstructive sleep apnea) Status: Chronic Assessment & Plan: Continue CPAP at 6cm H20 pressure, as at home. (10) Atrial fibrillation with RVR Assessment & Plan: She did develop atrial fibrillation with a rapid response overnight. She received a loading dose of digoxin. We restarted the verapamil and labetalol (her home medications). Labetalol now discontinued due to borderline low blood pressures. She has converted to sinus rhythm and has maintained. If she continues in sinus rhythm will stop the full dose Lovenox as well. Exam Sepsis Risk: No Definite Risk NIKOLAS SHOEMAKER MD Feb 08, 2018 08:32
[2018-02-08] MEDS: cefTRIAXone(*) 2 GM VIAL 2 GM in NS(*) 0.9% 100 ML ADDVANT BAG 100 ML IVPB SCH (09:54)
[2018-02-08] MEDS: ENOXAPARIN 100 MG/ML SYR SC SCH (10:06)
[2018-02-08] MEDS: VERAPAMIL HCL SR 180 MG TABCR PO SCH (10:06)
--- NOTE | 2018-02-08 13:01 | Medical Nutrition Therapy ---
Nutrition Anthropometrics Height (Inches): 56.00 Height (Calculated Centimeters: 142.984652 Weight (Pounds): 160 Weight (Calculated Kilograms): 72.717 BMI: 33.9 Thomas Nutrition Score: Adequate Thomas Nutrition Risk Score: 18 Dietary Referral Nutrition Risk Factors: Special Diet Nutrition Risk Comment: 1800 ADA Physical Findings Physical Appearance: Obese BMI 30-39 Skin Appearance Skin Appearance: Edema Edema Location Modifier: Both Edema Location: Foot Type of Edema: Degree of Edema: 1+ Gastrointestinal Symptoms GI Symtoms: Hemorrhoids Tube Present: Bowel Sounds: Recent Bowel Pattern: Stool Characteristics: Nutritional Diagnosis Nutritional Risk Acuity 1: Acute/ES Renal Nutritional Risk Acuity 2: Blood Glucose > 300mg/dl Nutritional Acuity: 1-High Nutrition Diagnosis: Inconsistent Carb. Intake Nutrition Etiology: Physiological Causes Nutrition Problem/Etiology/Sym: AEB BG 310 Adjusted Energy Requirement Re: 1700 (25 kcal/kg) Protein Requirement: 54 (.8 gm/kg) Fluid Requirement: 1700 (25 ml/kg) Diet Type: Diabetic Nutrition Intervention: Cont diet as ordered, Encourage intake Nutrition Monitoring & Eval RD Patient Assessment Time: [address] Assessment Type: RD Re-Assessment Patient Nutrition Acuity: 1-High Follow Up Date: Feb 11, 2018 Nutritional Comment: 02/04 Pt admitted with pneumonia and ARF. BUN 90. creatinine 2.3. A;lb 2.1. BG elevated up t o316. Pt has hx of T2DM, Pt on diabetic diet but refused intake yesterday and no intake reported for today. Will f/u and encourage intake. BK 02/05 Pt cont on diabetic diet, eating 75-100% of meals today. BG ranging 195- 310. Pt is recieving insulin. K+ 3.3, pt is recieving K+ supplment. BUN cont elevated at 83, creatinine cont elevated at 2.3 but has improved. cont to monitor and encourage intake. 02/08 Intake of ADA diet around 75-100%. BG ranging 200-335. Pt feeling improved. Noting 1+ pitting edema in BLE, wt up over 5# since admit. Noting low H/H, but improving, Na 129, BUN 79, creatinine 2, alk phos 166, tot pro 4.8 and alb 2.1. Will cont to monitor and encourage intake.-OMAR NIXON Feb 08, 2018 13:01
[2018-02-09 03:06] VITALS: BP 162/70
[2018-02-09 06:11] LABS: PLATELET COUNT, AUTOMATED 236 K/uL (150-450)
[2018-02-09] MEDS: SODIUM BICARBONATE 650 MG TAB PO SCH ×2 (08:09→11:43)
[2018-02-09] MEDS: INSULIN HUM LISPRO 100 UN/ML 3 ML VIAL SUBQ PRN ×4 (08:09→20:58)
[2018-02-09] MEDS: RANITIDINE HCL 150 MG TAB PO SCH ×2 (08:09→17:23)
--- NOTE | 2018-02-09 09:43 | Hospitalist Progress Note ---
Subjective Progress Notes Subjective She has no complaints this morning. She had no acute events overnight. Her WBC count continues to decrease. Blood glucoses have been elevated. Patient Complains of: Cardiovascular: No: Chest Pain Respiratory: No: Shortness of Breath Physical Exam Vital Signs Date Time Temp Pulse Resp B/P (MAP) Pulse Ox O2 Delivery O2 Flow Rate FiO2 02/09/18 04:00 90 02/09/18 03:34 84 02/09/18 03:34 Nasal Cannula 1.0 02/09/18 03:06 98.8 20 162/70 (100) 02/08/18 23:23 50.0 Intake and Output 02/09/18 07:00 Intake Total 1936 ml Balance 1936 ml Intake Oral 1826 ml IV Total 110 ml # Voids 12 # Bowel Movements 7 General Appearance: Alert, Awake, No Acute Distress, Afebrile Neuro: No Gross deficits Cardiovascular: Regular Rate and Rhythm Respiratory: No Respiratory Distress, Other (scattered crackles) GI: Soft and Non-Tender Extremities: No Edema Psych: Alert & Oriented X3, Appropriate Mood & Affect Result Diagram: 02/09/18 0549 02/09/18 0549 Assessment and Plan Problems: (1) Sepsis Status: Acute Assessment & Plan: Her blood cultures are both positive for E. coli. She has been on treatment with IV ceftriaxone, but will be switched to Cefdinir today. Her WBC is trending down. Her fever is improved. The suspected source is urinary vs. pulmonary. Unfortunately, her urinalysis was a contaminated sample and a urine culture is not available. She will need 14 days of antibiotic treatment total. (2) Pneumonia, bacterial Status: Acute Assessment & Plan: Her initial chest x-ray was reported to show basilar infiltrates. She was initially started on ceftriaxone and azithromycin, but the azithromycin has now been discontinued. (3) ARF (acute renal failure) Status: Acute Assessment & Plan: Creatinine improved. Given anemia SPEP, kappa/lambda, renal US, Ur Cr - protein - Na+ ordered for further evaluation. (4) Metabolic acidosis Assessment & Plan: Improved. Started on sodium bicarbonate tablet bid. (5) DM2 (diabetes mellitus, type 2) Status: Acute Assessment & Plan: She has been on chronic treatment with metformin and Toujeo, which will be restarted today. She is receiving sliding scale level #2. (6) Caregiver stress Status: Chronic Assessment & Plan: She take care of her who has fairly advanced dementia. Dr. Soto is looking into care options for him while the patient is in the hospital. (7) HTN (hypertension) Status: Chronic Assessment & Plan: Chronically on verapamil, spironolactone, losartan and labetalol. The labetalol and verapamil were restarted, but her BPs have been on lower side. Will modify regimen to once daily verapamil 180mg. (8) GERD (gastroesophageal reflux disease) Status: Chronic Assessment & Plan: Continue chronic ranitidine. (9) BASIL (obstructive sleep apnea) Status: Chronic Assessment & Plan: Continue CPAP at 6cm H20 pressure, as at home. (10) Atrial fibrillation with RVR Assessment & Plan: She did develop atrial fibrillation with a rapid response overnight. She received a loading dose of digoxin. We restarted the verapamil and labetalol (her home medications). Labetalol now discontinued due to borderline low blood pressures. She has converted to sinus rhythm and has maintained. If she continues in sinus rhythm will stop the full dose Lovenox as well. Exam Sepsis Risk: No Definite Risk JOSE LUIS WALL [employer] A[employer] Feb 09, 2018 09:43
[2018-02-09] MEDS: ENOXAPARIN 100 MG/ML SYR SC SCH (09:44)
[2018-02-09] MEDS: CEFDINIR 300 MG CAP PO SCH ×2 (09:45→20:57)
[2018-02-09] MEDS: VERAPAMIL HCL SR 180 MG TABCR PO SCH (09:46)
[2018-02-09] MEDS: INSULIN GLARGINE 100 U/ML 3 ML PEN SUBQ SCH (09:47)
[2018-02-09 09:48] VITALS: BP 145/76
[2018-02-09] MEDS: metFORMIN HCL 500 MG TAB PO SCH ×3 (11:43→20:57)
[2018-02-09 12:46] VITALS: BP 152/70
[2018-02-09 15:35] VITALS: BP 174/79
[2018-02-09 18:23] VITALS: BP 182/70
[2018-02-09 23:15] VITALS: BP 174/74
[2018-02-10 02:10] VITALS: BP 175/83
[2018-02-10 05:54] LABS: PLATELET COUNT, AUTOMATED 256 K/uL (150-450)
[2018-02-10 07:45] VITALS: BP 163/76
[2018-02-10] MEDS: SODIUM BICARBONATE 650 MG TAB PO SCH ×2 (07:47→11:33)
[2018-02-10] MEDS: RANITIDINE HCL 150 MG TAB PO SCH ×2 (07:47→16:57)
[2018-02-10] MEDS: INSULIN HUM LISPRO 100 UN/ML 3 ML VIAL SUBQ PRN ×4 (07:47→21:12)
[2018-02-10] MEDS ORDERED: LOSARTAN POTASSIUM 50 MG TAB PO SCH (09:00)
[2018-02-10] MEDS: metFORMIN HCL 500 MG TAB PO SCH ×3 (09:13→21:10)
[2018-02-10] MEDS: VERAPAMIL HCL SR 180 MG TABCR PO SCH (09:13)
[2018-02-10] MEDS: ENOXAPARIN 100 MG/ML SYR SC SCH (09:13)
[2018-02-10] MEDS: CEFDINIR 300 MG CAP PO SCH ×2 (09:14→21:10)
[2018-02-10] MEDS: FUROSEMIDE 20 MG TAB PO SCH (09:14)
[2018-02-10] MEDS: INSULIN GLARGINE 100 U/ML 3 ML PEN SUBQ SCH (09:14)
[2018-02-10] MEDS ORDERED: GLYCERIN/WITCH HAZEL LEAF 1 PK TP PRN (09:25)
--- NOTE | 2018-02-10 10:47 | Hospitalist Progress Note ---
Subjective Progress Notes Subjective She has decreasing hemoglobin and hematocrit levels this morning. She does have a history of hemorrhoids, which required a rubberband procedure last year and has noticed blood every time she wipes. She has increased tachycardia and increased oxygen use this morning. However, she denies feeling poorly. She does admit to stress about her family. Patient Complains of: Cardiovascular: No: Chest Pain Respiratory: No: Shortness of Breath Physical Exam Vital Signs Date Time Temp Pulse Resp B/P (MAP) Pulse Ox O2 Delivery O2 Flow Rate FiO2 02/10/18 09:20 89 Room Air 02/10/18 07:45 98.9 90 22 163/76 (105) 02/10/18 02:10 1.0 02/08/18 23:23 50.0 Intake and Output 02/10/18 07:00 Intake Total 630 ml Balance 630 ml Intake Oral 630 ml # Voids 15 # Bowel Movements 8 General Appearance: Alert, Awake, No Acute Distress, Afebrile Neuro: No Gross deficits Eyes: Other (conjuntiva pale) Cardiovascular: Other (tachycardic) Respiratory: No Respiratory Distress, Clear to Auscultation GI: Soft and Non-Tender, Other (large hemorroids present) Extremities: Warm, Perfused, Edema (2+pitting edema) Integumentary: Other (appears pale) Psych: Alert & Oriented X3, Appropriate Mood & Affect Result Diagram: 02/10/1852602/10/18526 Assessment and Plan Problems: (1) Sepsis Status: Acute Assessment & Plan: Her blood cultures are both positive for E. coli. She has been on treatment with IV ceftriaxone, and was switched to Cefdinir 02/09. Her WBC is trending down. Her fever is improved. The suspected source is urinary vs. pulmonary. Unfortunately, her urinalysis was a contaminated sample and a urine culture is not available. She will need 14 days of antibiotic treatment total. (2) Pneumonia, bacterial Status: Acute Assessment & Plan: Her initial chest x-ray was reported to show basilar infiltrates. She was initially started on ceftriaxone and azithromycin, but the azithromycin has now been discontinued. (3) Acute blood loss anemia Status: Acute Assessment & Plan: Her hemoglobin and hematocrit have dropped since admission. She does have hemorrhoids that have been bleeding throughout admission. Likely worsened because of Lovenox (which has been stopped today). She will get CBC rechecked and type and screen at 1200 today. I have recommended the patient get blood transfusion, but wishes to wait at this time. She would like to speak to her daughter first. I have also consulted surgery to evaluate the rectum. (4) ARF (acute renal failure) Status: Acute Assessment & Plan: Creatinine improved. Given anemia SPEP, kappa/lambda, renal US, Ur Cr - protein - Na+ ordered for further evaluation. (5) Metabolic acidosis Assessment & Plan: Improved. Started on sodium bicarbonate tablet bid. (6) DM2 (diabetes mellitus, type 2) Status: Acute Assessment & Plan: She has been on chronic treatment with metformin and Toujeo, which will be restarted 02/09. She is receiving sliding scale level #2. (7) Caregiver stress Status: Chronic Assessment & Plan: She take care of her who has fairly advanced dementia. Dr. Soto is looking into care options for him while the patient is in the hospital. (8) HTN (hypertension) Status: Chronic Assessment & Plan: Chronically on verapamil, spironolactone, losartan and labetalol. The labetalol and verapamil were restarted, but her BPs and pulses have been on lower side. Labetalol was stopped. Will modify regimen to once daily verapamil 180mg. Will add Lasix today since patient BP's are trending up and she is edematous. (9) GERD (gastroesophageal reflux disease) Status: Chronic Assessment & Plan: Continue chronic ranitidine. (10) BASIL (obstructive sleep apnea) Status: Chronic Assessment & Plan: Continue CPAP at 6cm H20 pressure, as at home. (11) Atrial fibrillation with RVR Assessment & Plan: She did develop atrial fibrillation with a rapid response after admission. She received a loading dose of digoxin. We restarted the verapamil and labetalol (her home medications). Labetalol now discontinued due to borderline low blood pressures. She has converted to sinus rhythm and has maintained. She has remained in sinus rhythm. She will be stopped on Lovenox, secondary to decreased hemoglobin and bleeding. Exam Sepsis Risk: No Definite Risk JOSE LUIS [employer]ALL [employer] Feb 10, 2018 10:47
[2018-02-10 11:27] VITALS: BP 151/75
[2018-02-10 12:21] LABS: PLATELET COUNT, AUTOMATED 285 K/uL (150-450)
--- NOTE | 2018-02-10 13:10 | Gen Surgery History & Physical ---
History of Present Illness Chief Complaint blood per rectum History of Present Illness 77 yo f admitted on 02/03 and treated for sepsis, pneumonia and afib. her hb has recently dropped to 8.2 from above 9. she has had a small amount of brb on the toilet paper with recent stools. her stool has been formed/loose. no perianal pain. she is on therapeutic lovenox for afib. her last dose was this am. she was unsure when her last colonoscopy was or what was found but it was at least a few yrs ago. she went into cardiac arrest during an incomplete colonoscopy in 2013. she had hemorrhoid banding in 2017. she feels her sob is better than on admission. she had some abd tightness a few days ago but not currently. recent chest pain but this resolved. History Home Meds Active Scripts Spironolactone (ALDACTONE) 25 Mg Tablet, 1 TAB PO QDAY for 30 Days, #30 TAB Prov:ELVI ELIAS MD 01/06/18 Insulin Glargine,Hum.rec.anlog (Katharine Melendez) 300 Unit/1 Ml Insuln.pen, 8 UNITS SQ QAM, #2 BOX 3 Refills Prov:ELVI ELIAS MD 11/18/17 Metformin Hcl (METFORMIN HCL) 500 Mg Tablet, 1 TAB PO TID, #270 TAB 1 Refill Prov:ELVI ELIAS MD 11/18/17 Ranitidine Hcl (ZANTAC) 150 Mg Tablet, 150 MG PO BID for hiatal hernia for 90 Days, #180 TAB 4 Refills Prov:ELVI ELIAS MD 08/25/17 Verapamil Hcl (VERAPAMIL ER) 180 Mg Tablet.er, 180 MG PO BID for 90 Days, #180 TAB 4 Refills Prov:ELVI ELIAS MD 06/26/17 Terazosin Hcl (TERAZOSIN HCL) 10 Mg Capsule, 10 MG PO DAILY for 90 Days, #90 CAPSULE 4 Refills Prov:ELVI ELIAS MD 06/26/17 [place], Insulin Disposable (INSULIN PEN NEEDLE) 1 Each Dis.needle, EACH MC DIRECTED, #100 4 Refills Pen needles, patients preference in length Please send box of 100 pluse 4 refills Prov:ELVI ELIAS MD 06/26/17 Labetalol Hcl (LABETALOL HCL) 200 Mg Tablet, 3 TAB PO BID, #540 TAB 4 Refills Prov:ELVI ELIAS MD 05/19/17 Reported Medications Losartan Potassium (LOSARTAN POTASSIUM) 100 Mg Tablet, 100 MG PO QDAY 02/03/18 Potassium Chloride (KLOR-CON M20) 20 Meq Tab.er.prt, 1 TAB PO DAILY 02/03/18 Multivitamin (DAILY MULTIPLE VITAMIN) 1 Each Tablet, 1 TAB PO DAILY 11/24/17 Aspirin (ASPIR 81) 81 Mg Tablet.dr, 1 TAB PO QDAY, TAB 11/24/17 Discontinued Scripts Losartan Potassium (LOSARTAN POTASSIUM) 100 Mg Tablet, 1 TAB PO QDAY for 90 Days, #90 TAB 4 Refills Prov:ELVI ELIAS MD 08/25/17 Allergies: Coded Allergies: procaine (Verified Allergy, Mild, PASSED OUT, 02/03/18) benazepril (Verified Adverse Reaction, Mild, COUGH, 02/03/18) Review of Systems Constitutional: Other (10 pt ros neg except per hpi) Other 10 pt ros neg except per hpi Exam General Appearance: Alert, Awake, No Acute Distress Neuro: No Gross deficits Eyes: Other (per, eomi) Neck: No Masses Cardiovascular: Other (reg rate) Respiratory: No Respiratory Distress GI: Abd Soft and Non-Tender, Other (perianal exam - mult large soft ext hemorrhoids, no active bleeding, naya wnl) Extremities: Edema Psych: Alert & Oriented X3, Appropriate Mood & Affect Medical Decision Making Data Points Result Diagram: 02/10/18 1210 02/10/18 0527 Assessment and Plan Problems: (1) Rectal bleeding Status: Acute Assessment & Plan: hold lovenox serial exams, hb if stable then will will see pt in clinic and discuss colonoscopy and hemorrhoidectomy Venous Thromboembolism Antithrombotics Is Pt On Any Antithrombotics?: YVES Saldana Feb 10, 2018 13:10
[2018-02-10 15:01] VITALS: BP 152/69
[2018-02-10 18:57] VITALS: BP 172/77
[2018-02-10 23:05] VITALS: BP 187/87
[2018-02-11 04:27] VITALS: BP 179/94
[2018-02-11 06:01] LABS: PLATELET COUNT, AUTOMATED 293 K/uL (150-450)
[2018-02-11] MEDS: RANITIDINE HCL 150 MG TAB PO SCH (08:27)
[2018-02-11] MEDS: VERAPAMIL HCL SR 180 MG TABCR PO SCH (08:28)
[2018-02-11] MEDS: metFORMIN HCL 500 MG TAB PO SCH (08:28)
[2018-02-11] MEDS: SODIUM BICARBONATE 650 MG TAB PO SCH ×2 (08:28→11:42)
[2018-02-11] MEDS: FUROSEMIDE 20 MG TAB PO SCH (08:29)
[2018-02-11] MEDS: CEFDINIR 300 MG CAP PO SCH (08:29)
[2018-02-11] MEDS: INSULIN GLARGINE 100 U/ML 3 ML PEN SUBQ SCH (08:29)
[2018-02-11] MEDS: INSULIN HUM LISPRO 100 UN/ML 3 ML VIAL SUBQ PRN ×2 (08:30→11:35)
[2018-02-11] MEDS ORDERED: INSULIN GLARGINE 100 U/ML 3 ML PEN SUBQ ONE (09:47)
[2018-02-11 11:26] VITALS: BP 147/79
--- NOTE | 2018-02-11 12:09 | Medical Nutrition Therapy ---
Nutrition Anthropometrics Height (Inches): 56.00 Height (Calculated Centimeters: 142.507091 Weight (Pounds): 155 Weight (Calculated Kilograms): 70.505 BMI: 33.9 Thomas Nutrition Score: Adequate Thomas Nutrition Risk Score: 18 Dietary Referral Nutrition Risk Factors: Special Diet Nutrition Risk Comment: 1800 ADA Physical Findings Physical Appearance: Obese BMI 30-39 Skin Appearance Skin Appearance: Edema Edema Location Modifier: Both Edema Location: Foot Type of Edema: Degree of Edema: 2+ Gastrointestinal Symptoms GI Symtoms: Diarrhea, Hemorrhoids Tube Present: Bowel Sounds: Recent Bowel Pattern: Stool Characteristics: Nutritional Diagnosis Nutritional Risk Acuity 1: Acute/ES Renal Nutritional Risk Acuity 2: Blood Glucose > 300mg/dl, Sepsis Past Medical History: T2DM, obstructive sleep apnea, HTN, and caregiver stress Nutritional Acuity: 1-High Nutrition Diagnosis: Inconsistent Carb. Intake Nutrition Etiology: Physiological Causes Nutrition Problem/Etiology/Sym: Inconsistent carb intake as related to physiological causes as evidenced by whole blood glucose of 334-269. Adjusted Energy Requirement Re: 1700 (25 kcal/kg) Protein Requirement: 54 (.8 gm/kg) Fluid Requirement: 1700 (25 ml/kg) Diet Type: Diabetic Nutrition Intervention: Cont diet as ordered, Encourage intake Drug: Diuretics Additional Diet Restrictions: AVOID NATURAL LICORICE Nutrition Monitoring & Eval RD Patient Assessment Time: [address] Assessment Type: RD Re-Assessment Patient Nutrition Acuity: 1-High Follow Up Date: Feb 14, 2018 Nutritional Comment: 02/04 Pt admitted with pneumonia and ARF. BUN 90. creatinine 2.3. A;lb 2.1. BG elevated up t o316. Pt has hx of T2DM, Pt on diabetic diet but refused intake yesterday and no intake reported for today. Will f/u and encourage intake. BK 02/05 Pt cont on diabetic diet, eating 75-100% of meals today. BG ranging 195- 310. Pt is recieving insulin. K+ 3.3, pt is recieving K+ supplment. BUN cont elevated at 83, creatinine cont elevated at 2.3 but has improved. cont to monitor and encourage intake. 02/08 Intake of ADA diet around 75-100%. BG ranging 200-335. Pt feeling improved. Noting 1+ pitting edema in BLE, wt up over 5# since admit. Noting low H/H, but improving, Na 129, BUN 79, creatinine 2, alk phos 166, tot pro 4.8 and alb 2.1. Will cont to monitor and encourage intake.-EK 02/11/18 Current main concern for pt is rectal bleeding. Wt is currently at 70.5 kg, and has fluctuated from 77 kg to 67.5 kg. Weight changes most likely due to 2+ pitting edema in BLE. Whole blood glucose has improved from 334 on 02/10 to 269 on 02/11. Hgb and hct continue to be low at 8.2 and 23.6, respectively. Diet continues to be [place] Diabetic Diet with consumption varying from 0-100%, with most meals between 25-75% intake. Continue to monitor from improvements in intake and medical condition. Pt continues on furosemide (no natural licorice), and metformin and insulin. -SARA NOBLE Feb 11, 2018 12:09
--- NOTE | 2018-02-11 12:41 | Hospitalist Depart ---
Discharge Summary Reason for Hosp/Final Diag: (1) Sepsis Status: Acute Hospital Course & Plan: She presented with 5 days of progressive tiredness causing decreased oral intake and a couple days of productive cough. She was found to be borderline hypotensive, mildly hypoxic and very dehydrated. She had a leukocytosis, elevated lactate, elevated creatinine and left basilar infiltrate on CXR. Her blood cultures were both positive for E. coli. She has been on treatment with IV ceftriaxone, and was switched to Cefdinir 02/09. Her WBC is trending down. Her fever has improved. The suspected source is urinary vs. pulmonary. Unfortunately, her urinalysis was a contaminated sample and a urine culture is not available. She will need 14 days of antibiotic treatment total. She is going to [facility] to continue working with therapy. (2) Pneumonia, bacterial Status: Acute Hospital Course & Plan: Her initial chest x-ray was reported to show basilar infiltrates. She was initially started on ceftriaxone and azithromycin, but the azithromycin was discontinued. See above. (3) Atrial fibrillation with RVR Hospital Course & Plan: She did develop atrial fibrillation with a rapid response after admission. She received a loading dose of digoxin. We restarted the verapamil and labetalol (her home medications). Labetalol now discontinued due to borderline low blood pressures. She has converted to sinus rhythm and has maintained. She has remained in sinus rhythm. She was stopped on Lovenox, secondary to decreased hemoglobin and bleeding. (4) Acute blood loss anemia Status: Acute Hospital Course & Plan: Her hemoglobin and hematocrit have dropped since admission. She does have hemorrhoids that have been intermittently bleeding throughout the stay. Likely worsened because of Lovenox (which has been stopped since 02/10). She was seen by Dr. Jama (surgery). He recommended stopping Lovenox and have her f/u in the clinic. Will follow labs and symptoms. (5) ARF (acute renal failure) Status: Acute Hospital Course & Plan: Creatinine improved. SPEP didn't show monoclonal proteins, but didn't have an increased alpha region. The Urine protein/creatinine was elevated at about 900. She should follow up with nephrology and hematology as an outpatient. (6) Metabolic acidosis Hospital Course & Plan: Improved. Started on sodium bicarbonate tablet bid. (7) DM2 (diabetes mellitus, type 2) Status: Acute Hospital Course & Plan: She has been on chronic treatment with metformin and Toujeo, which will be restarted 02/09. She is receiving sliding scale level #2 a nd Lantus. (8) Caregiver stress Status: Chronic Hospital Course & Plan: She take care of her who has fairly advanced dementia. Dr. Elias is looking into care options for him while the patient is in the hospital. (9) HTN (hypertension) Status: Chronic Hospital Course & Plan: Chronically on verapamil, spironolactone, losartan and labetalol. The labetalol and verapamil were restarted, but her BPs and pulses have been on lower side. Labetalol was stopped. Now on once daily verapamil 180mg and Lasix 20mg. (10) GERD (gastroesophageal reflux disease) Status: Chronic Hospital Course & Plan: Continue chronic ranitidine. (11) BASIL (obstructive sleep apnea) Status: Chronic Hospital Course & Plan: Continue CPAP at 6cm H20 pressure, as at home. (12) Edema Status: Acute Hospital Course & Plan: She has been started on daily Lasix. Certainly, proteinuria is contributing. Also, has an elevated BNP with a preserved ERF. Will follow physical exam and BMP. (13) Anemia Status: Chronic Hospital Course & Plan: See above. Low iron, low TIBC, and elevated Ferritin. Will check B12 and Folate with a reticulocyte count. Departure Weight (Pounds): 155 Weight (Ounces): 7.0 Result Diagram: 02/11/18 0534 02/11/18 0534 Item Value Date Time White Blood Count 21.1 k/uL H 02/03/18 1055 White Blood Count 23.2 k/uL H 02/04/18 0527 White Blood Count 18.5 k/uL H 02/05/18 0542 White Blood Count 17.6 k/uL H 02/06/18 0602 White Blood Count 15.5 k/uL H 02/07/18 0514 Hemoglobin 8.7 g/dL *L 02/07/18 0514 Hemoglobin 9.6 g/dL L 02/06/18 0602 Hemoglobin 10.4 g/dL L 02/05/18 0542 Hemoglobin 11.0 g/dL L 02/04/18 0527 Hemoglobin 10.8 g/dL L 02/03/18 1055 Platelet Count 133 K/uL L 02/03/18 1055 Platelet Count 112 K/uL L 02/04/18 0527 Platelet Count 104 K/uL L 02/05/18 0542 Platelet Count 129 K/uL L 02/06/18 0602 Platelet Count 152 K/uL 02/07/18 0514 Neutrophils (%) (Auto) 90.5 % H 02/03/18 1055 Neutrophils (%) (Auto) 89.3 % H 02/06/18 0602 Neutrophils (%) (Auto) 86.4 % H 02/07/18 0514 Neutrophils % (Manual) 39 % L 02/04/18 0527 Band Neutrophils % 54 % 02/04/18 0527 Neutrophils % (Manual) 58 % 02/05/18 0542 Band Neutrophils % 36 % 02/05/18 0542 White Blood Count 14.2 k/uL H 02/08/18 0520 White Blood Count 12.5 k/uL H 02/09/18 0549 White Blood Count 11.8 k/uL H 02/10/18 0527 White Blood Count 12.4 k/uL H 02/10/18 1210 White Blood Count 10.1 k/uL 02/11/18 0534 Hemoglobin 8.2 g/dL *L 02/11/18 0534 Red Blood Count 3.10 M/uL L 02/10/18 1210 Hemoglobin 8.2 g/dL *L 02/10/18 0527 Hemoglobin 8.7 g/dL *L 02/09/18 0549 Hemoglobin 9.3 g/dL L 02/08/18 0520 Hemoglobin 8.9 g/dL *L 02/10/18 1210 Platelet Count 293 K/uL 02/11/18 0534 Platelet Count 285 K/uL 02/10/18 1210 Platelet Count 256 K/uL 02/10/18 0527 Platelet Count 198 K/uL 02/08/18 0520 Platelet Count 236 K/uL 02/09/18 0549 Neutrophils % (Manual) 89 % H 02/08/18 0520 Band Neutrophils % 1 % 02/08/18 0520 Lymphocytes % (Manual) 5 % L 02/08/18 0520 Neutrophils (%) (Auto) 86.5 % H 02/09/18 0549 Neutrophils (%) (Auto) 85.3 % H 02/10/18 0527 Neutrophils (%) (Auto) 85.6 % H 02/10/18 1210 Neutrophils (%) (Auto) 84.1 % H 02/11/18 0534 Lymphocytes (%) (Auto) 8.0 % L 02/11/18 0534 Lymphocytes (%) (Auto) 8.1 % L 02/10/18 1210 Lymphocytes (%) (Auto) 7.3 % L 02/10/18 0527 Lymphocytes (%) (Auto) 7.1 % L 02/09/18 0549 Arterial Blood pH 7.29 L 02/03/18 1153 Arterial Blood Partial Pressure CO2 < 25 mmHg L 02/03/18 1153 Arterial Blood Partial Pressure O2 61 mmHg 02/03/18 1153 Arterial Blood HCO3 11 mmol/L *L 02/03/18 1153 Arterial Blood Oxygen Saturation 90 % L 02/03/18 1153 Total Bilirubin 0.6 mg/dl 02/03/18 1055 Aspartate Amino Transf (AST/SGOT) 21 U/L 02/03/18 1055 Alanine Aminotransferase (ALT/SGPT) 33 U/L 02/03/18 1055 Alkaline Phosphatase 128 U/L H 02/03/18 1055 Troponin I 0.012 ng/ml 02/03/18 1055 Sodium Level 127 mmol/L L 02/03/18 1055 Potassium Level 5.1 mmol/L H 02/03/18 1055 Chloride Level 101 mmol/L 02/03/18 1055 Carbon Dioxide Level 13 mmol/L *L 02/03/18 1055 Blood Urea Nitrogen 93 mg/dl H 02/03/18 1055 Creatinine 3.00 mg/dl H 02/03/18 1055 Random Glucose 316 mg/dl H 02/03/18 1055 Sodium Level 130 mmol/L L 02/04/18 0527 Potassium Level 4.2 mmol/L 02/04/18 0527 Chloride Level 108 mmol/L H 02/04/18 0527 Carbon Dioxide Level 11 mmol/L *L 02/04/18 0527 Blood Urea Nitrogen 90 mg/dl H 02/04/18 0527 Creatinine 2.80 mg/dl H 02/04/18 0527 Total Bilirubin 0.5 mg/dl 02/04/18 0527 Aspartate Amino Transf (AST/SGOT) 23 U/L 02/04/18 0527 Alanine Aminotransferase (ALT/SGPT) 39 U/L 02/04/18 0527 Alkaline Phosphatase 122 U/L 02/04/18 0527 B-Type Natriuretic Peptide 691 pg/ml H 02/04/18 0527 Sodium Level 128 mmol/L L 02/04/18 1905 Sodium Level 125 mmol/L *L 02/05/18 0542 Potassium Level 3.3 mmol/L L 02/05/18 0542 Potassium Level 3.6 mmol/L 02/04/18 1905 Carbon Dioxide Level 14 mmol/L *L 02/04/18 1905 Carbon Dioxide Level 17 mmol/L L 02/05/18 0542 Blood Urea Nitrogen 83 mg/dl H 02/05/18 0542 Creatinine 2.30 mg/dl H 02/05/18 0542 Blood Urea Nitrogen 84 mg/dl H 02/04/18 1905 Creatinine 2.50 mg/dl H 02/04/18 1905 Troponin I 0.012 ng/ml 02/05/18 1144 Thyroid Stimulating Hormone (TSH) 1.83 uIU/ml 02/05/18 1144 Carbon Dioxide Level 15 mmol/L L 02/06/18 0602 Blood Urea Nitrogen 80 mg/dl H 02/06/18 0602 Creatinine 2.10 mg/dl H 02/06/18 0602 Sodium Level 129 mmol/L L 02/06/18 0602 Magnesium Level 1.4 mg/dl L 02/06/18 0602 Sodium Level 128 mmol/L L 02/07/18 0514 Carbon Dioxide Level 16 mmol/L L 02/07/18 0514 Blood Urea Nitrogen 84 mg/dl H 02/07/18 0514 Creatinine 2.30 mg/dl H 02/07/18 0514 Phosphorus Level 3.7 mg/dl 02/07/18 0514 Iron Level 34 ug/dl L 02/07/18 0514 Total Iron Binding Capacity 163 ug/dl L 02/07/18 0514 Percent Iron Saturation 20.9 % 02/07/18 0514 Ferritin 303 ng/ml H 02/07/18 0514 Uric Acid 8.8 mg/dl H 02/07/18 0514 Sodium Level 129 mmol/L L 02/08/18 0520 Carbon Dioxide Level 13 mmol/L *L 02/08/18 0520 Blood Urea Nitrogen 79 mg/dl H 02/08/18 0520 Creatinine 2.00 mg/dl H 02/08/18 0520 Total Bilirubin 0.7 mg/dl 02/08/18 0520 Aspartate Amino Transf (AST/SGOT) 26 U/L 02/08/18 0520 Alanine Aminotransferase (ALT/SGPT) 48 U/L 02/08/18 0520 Alkaline Phosphatase 166 U/L H 02/08/18 0520 Protein Electrophoresis (T) 5.80 g/dL L 02/08/18 0520 Albumin % (PEP) 2.65 g/dL L 02/08/18 0520 Qlaxm-7-Ukuklklvl 0.63 g/dL H 02/08/18 0520 Xtsyw-6-Cdfrnqgla 0.83 g/dL 02/08/18 0520 Beta Globulins 0.73 g/dL 02/08/18 0520 Gamma Globulins (%) 0.97 g/dL 02/08/18 0520 Blood Urea Nitrogen 63 mg/dl H 02/09/18 0549 Creatinine 1.70 mg/dl H 02/09/18 0549 Carbon Dioxide Level 15 mmol/L L 02/09/18 0549 Sodium Level 131 mmol/L L 02/09/18 0549 Magnesium Level 1.3 mg/dl L 02/09/18 0549 Carbon Dioxide Level 17 mmol/L L 02/10/18 0527 Blood Urea Nitrogen 52 mg/dl H 02/10/18 0527 Creatinine 1.30 mg/dl H 02/10/18 0527 Carbon Dioxide Level 17 mmol/L L 02/11/18 0534 Blood Urea Nitrogen 43 mg/dl H 02/11/18 0534 Creatinine 1.10 mg/dl H 02/11/18 0534 Total Bilirubin 0.6 mg/dl 02/11/18 0534 Alanine Aminotransferase (ALT/SGPT) 38 U/L 02/11/18 0534 Alkaline Phosphatase 166 U/L H 02/11/18 0534 Aspartate Amino Transf (AST/SGOT) 17 U/L 02/11/18 0534 Urine Random Creatinine 61.6 mg/dl 02/07/18 1705 Urine Random Total Protein 58 mg/dl H 02/07/18 1705 Urine Random Sodium 5 MEQ/L 02/07/18 1705 Urine RBC None /HPF 02/03/18 1340 Urine WBC 40 /HPF 02/03/18 1340 Urine WBC Clumps Many /HPF 02/03/18 1340 Urine Squamous Epithelial Cells Moderate /LPF H 02/03/18 1340 Urine Leukocyte Esterase Small H 02/03/18 1340 Acetone, Qualitative Negative 02/03/18 1403 Stool Occult Blood (IFOB) Negative 02/10/18 0926 Free [place] Light Chains, Quant 14.70 mg/dL H 02/08/18 0520 Free Lambda Light Chains, Quant 7.28 mg/dL H 02/08/18 0520 Free [place]/Lambda Light Chain Ratio 2.02 H 02/08/18 0520 Influenza Virus Type A (PCR) Negative 02/03/18 1335 Influenza Virus Type B (PCR) Negative 02/03/18 1335 Blood Cultures x2 (See below) SPEC #: [id number] DARY: 02/03/18 STATUS: COMP REQ #: [id number] RECD: 02/03/[address] [facility] [address]: ISAMAR MAYNARD DO SOURCE: BLOOD PER ENTR: 02/03/[address]: BCG[facility], CULT BLOOD Procedure Result Verified ---- -------- BLOOD CULTURE GRAM STAIN Final 02/03/18-2232 ANAEROBIC BOTTLE POSITIVE GRAM NEGATIVE RODS POSITIVE BLOOD CULTURE GRAM STAIN REPORT CALLED TO: RODRIGO MALAVE RN DATE/TIME REPORT CALLED: 02/03/2018 AT 2233 CALLED BY: WAYNE ARTIS BLOOD CULTURE Final 02/05/18-0807 Organism 1 ESCHERICHIA COLI GROWTH PRESENT IN BOTH THE AEROBIC AND ANAEROBIC BOTTLES ESC COLI M.I.C. RX --------- --- AMPICILLIN <=2 S AMPICILLIN/SULBACTAM <=2 S CEFAZOLIN <=4 S CEFTAZIDIME <=1 S CEFTRIAXONE <=1 S CEFEPIME <=1 S CEFOXITIN <=4 S ERTAPENEM <=0.5 S CIPROFLOXACIN <=0.25 S GENTAMICIN <=1 S IMIPENEM <=0.25 S LEVOFLOXACIN 1 S PIPERACILLIN/TAZOBACTAM <=4 S TOBRAMYCIN <=1 S TRIMETHOPRIM/SULFAMETHOXAZOLE >=320 R Imaging 02/07/18 Renal US - 1. No renal mass or hydronephrosis. 2. Bilateral kidney mildly increased cortical arterial resistive index is suggestive of medical renal disease. 02/05/18 Echo - EF 60-65%, Mod TR, RVSP 45-50 02/04/18 CXR - Improving basilar opacities. 02/03/18 CXR - 1. Coarsening stranding lower lung andres, left greater than right may represent scarring, atelectasis or developing infiltrates (are no prio r studies available) Mild blunting left costophrenic angle consistent with pleural thickening versus small pleural effusion EKG Vent. Rate : 149 BPM Atrial Rate : 312 BPM P-R Int : 000 ms QRS Dur : 090 ms QT Int : 272 ms P-R-T Axes : 000 -53 122 degrees QTc Int : 428 ms Atrial fibrillation with rapid ventricular response Left axis deviation Decreased R wave progression anteriorly Abnormal ECG Vent. Rate : 074 BPM Atrial Rate : 074 BPM P-R Int : 270 ms QRS Dur : 092 ms QT Int : 362 ms P-R-T Axes : 063 -52 051 degrees QTc Int : 401 ms Sinus rhythm with 1st degree AV block R wave progression consistent with old ant/sep VA vs lead placement Moderate voltage criteria for LVH, may be normal variant Abnormal ECG When compared with ECG of 18-AUG-2013 10:18, Relatively unchanged Confirmed by MARTHA MENDIOLA ([id number]) on 02/03/2018 4:41:01 PM Condition: Improved Discharge: H ECF PT/OT Follow Up For: PT For Strengthening, OT For ADL's Home Health RN Follow Up For: Medication Management Home Health [employer] Follow Up For: ADL Assistance Discharge Instructions Home Meds Active Scripts Spironolactone (ALDACTONE) 25 Mg Tablet, 1 TAB PO QDAY for 30 Days, #30 TAB Prov:ELVI ELIAS MD 01/06/18 Insulin Glargine,Hum.rec.anlog (Touyisel Solostar) 300 Unit/1 Ml Insuln.pen, 8 UNITS SQ QAM, #2 BOX 3 Refills Prov:ELVI ELIAS MD 11/18/17 Metformin Hcl (METFORMIN HCL) 500 Mg Tablet, 1 TAB PO TID, #270 TAB 1 Refill Prov:ELVI ELIAS MD 11/18/17 Ranitidine Hcl (ZANTAC) 150 Mg Tablet, 150 MG PO BID for hiatal hernia for 90 Days, #180 TAB 4 Refills Prov:ELVI ELIAS MD 08/25/17 Verapamil Hcl (VERAPAMIL ER) 180 Mg Tablet.er, 180 MG PO BID for 90 Days, #180 TAB 4 Refills Prov:ELVI ELIAS MD 06/26/17 Terazosin Hcl (TERAZOSIN HCL) 10 Mg Capsule, 10 MG PO DAILY for 90 Days, #90 CAPSULE 4 Refills Prov:ELVI ELIAS MD 06/26/17 [facility], Insulin Disposable (INSULIN PEN NEEDLE) 1 Each Dis.needle, EACH MC DIRECTED, #100 4 Refills Pen needles, patients preference in length Please send box of 100 pluse 4 refills Prov:ELVI ELIAS MD 06/26/17 Labetalol Hcl (LABETALOL HCL) 200 Mg Tablet, 3 TAB PO BID, #540 TAB 4 Refills Prov:ELVI ELIAS MD 05/19/17 Reported Medications Losartan Potassium (LOSARTAN POTASSIUM) 100 Mg Tablet, 100 MG PO QDAY 02/03/18 Potassium Chloride (KLOR-CON M20) 20 Meq Tab.er.prt, 1 TAB PO DAILY 02/03/18 Multivitamin (DAILY MULTIPLE VITAMIN) 1 Each Tablet, 1 TAB PO DAILY 11/24/17 Aspirin (ASPIR 81) 81 Mg Tablet.dr, 1 TAB PO QDAY, TAB 11/24/17 Diet: Diabetic Activity: With Walker Special Instructions: Hearing aids can become easily dislodged Copies to: ELVI ELIAS MD ; Venous Thromboembolism Antithrombotics Is Pt On Any Antithrombotics?: No MARTHA MENDIOLA MD Feb 11, 2018 12:41
[2018-02-12] MEDS ORDERED: INSULIN GLARGINE 100 U/ML 3 ML PEN SUBQ SCH (09:00)
== END 2018-02-11 13:40 | DRG 871 ==
LOC: ER 11:10 → UNDOADMIN 12:36 → OBSVTOIN 12:36 → INTOOBSV 12:36 → MED 12:36
PROVIDERS: ADMIT Internal Medicine; ATTEND Internal Medicine
PROC: 5A09357 Assistance with Respiratory Ventilation, Less than 24 Consecutive Hours, Continuous Positive Airway Pressure (ICD-10-PCS; principal; 2018-02-03)
DX: A41.51 Sepsis due to Escherichia coli [E. coli] (principal); J15.9 Unspecified bacterial pneumonia; D62 Acute posthemorrhagic anemia; N17.9 Acute kidney failure, unspecified; E87.2 Acidosis; K92.1 Melena; T45.515A Adverse effect of anticoagulants, initial encounter; I48.0 Paroxysmal atrial fibrillation; I11.0 Hypertensive heart disease with heart failure; I50.9 Heart failure, unspecified; E11.9 Type 2 diabetes mellitus without complications; K21.9 Gastro-esophageal reflux disease without esophagitis; R09.02 Hypoxemia; G47.33 Obstructive sleep apnea (adult) (pediatric); E86.0 Dehydration; R60.9 Edema, unspecified; Z63.6 Dependent relative needing care at home; Z88.8 Allergy status to other drugs, medicaments and biological substances; Z79.4 Long term (current) use of insulin; Z79.84 Long term (current) use of oral hypoglycemic drugs
CPT/HCPCS: 36415; 36416; 36600; 71045; 71046; 76705; 81001; 82009; 82040; 82247; 82274; 82310; 82374; 82435; 82565; 82570; 82728; 82803; 82947; 82948; 83540; 83550; 83605; 83735; 83880; 83883; 84075; 84100; 84132; 84155; 84156; 84165; 84295; 84300; 84443; 84450; 84460; 84484; 84520; 84550; 85025; 86850; 86900; 86901; 87040; 87077; 87186; 87502; 93005; 93306; 94640; 94660; 96361; 96372; 96374; 97162; 97166; 99285; J0456; J0692; J0696; J1160; J1650; J1815; J3370; J3480; J3490; J7030; J7040; J7050; J7070; P9045

== ENCOUNTER → 2018-03-02 | Outpatient (CLI) | payer MEDICARE ==
[2018-02-04 17:05] VITALS: BMI 33.4
[2018-03-02 13:31] LABS: PLATELET COUNT, AUTOMATED 284 K/uL (150-450)
== END ==
LOC: LAB 13:16
PROVIDERS: ATTEND Family Medicine
DX: E11.9 Type 2 diabetes mellitus without complications (principal); D64.9 Anemia, unspecified; I10 Essential (primary) hypertension
CPT/HCPCS: 36415; 82040; 82247; 82310; 82374; 82435; 82565; 82947; 84075; 84132; 84155; 84295; 84450; 84460; 84520; 85025

== ENCOUNTER → 2018-04-30 | Outpatient (CLI) | payer MEDICARE ==
[2018-02-04 17:05] VITALS: BMI 33.4
[~2018-04-30] MED LIST changes: -VERA180T53 PO; +VERA180T57 PO; -VERA240T12 PO; +VERA240T95 PO
[2018-04-30 14:09] LABS: PLATELET COUNT, AUTOMATED 247 K/uL (150-450)
== END ==
LOC: LAB 13:16
PROVIDERS: ATTEND Family Medicine
DX: E11.9 Type 2 diabetes mellitus without complications (principal); I10 Essential (primary) hypertension
CPT/HCPCS: 36415; 82310; 82374; 82435; 82565; 82947; 83036; 84132; 84295; 84520; 85025

== ENCOUNTER 2018-06-22 09:45 | Outpatient (RCR) | payer MEDICARE ==
[2018-02-04 17:05] VITALS: BMI 33.4
--- NOTE | 2018-03-25 17:37 | PT INITIAL EVALUATION ---
MEDICAL DIAGNOSIS: M25.511 Pain in R shoulder TREATMENT DIAGNOSIS: Same DATE OF ONSET: 08/24/17 SUBJECTIVE: Monalisa Florez returns to PT to complete treatment for R shoulder pain. She had to stop PT last January because of illness. Quick DASH was 18% before her discharge. Pain is an ache, 5/10, worse with reaching upward, carrying one gallon of water, trying to sleep. 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 OBJECTIVE: Posture: Mild forward head, increased thoracic kyphosis, protracted R shoulder. ROM: A/PROM R shoulder 90/140, scaption 90/125, ER 70/80, IR T9/40. Strength: Supraspinatus 3+/5, pain limited, infraspinatus 4/5, IR 4+/5. Palpation: Painful rotator cuff and long head of biceps tendons. Special Tests: Hypomobile R shoulder joints, tight anterior chest muscles. Negative crank, scour, drop arm. Gait: Mild shoulder elevation with flexion, scaption. ASSESSMENT: Monalisa Florez returns to PT with pain, weakness, tightness and tendinitis affecting her R shoulder function and sleep function. She did well with gentle manual therapy today, with less pain after. Short Term Goals/Patient's Goals 4 weeks: Monalisa sleeps without R shoulder pain, carries 1 gallon of water with R shoulder pain 3/10. 6 weeks: Monalisa carries 1 gallon of water without R shoulder pain. PLAN: Patient to be seen for Manual Therapy/STM/MET, Strengthening/condition, Ice/Heat, Range of Motion, Stretching, Neuromuscular Re-ed, Electrical Stim, Home Exercise Program 2x/Week for 6 Weeks Thank you for this referral. If you have any questions, comments, or concerns about this report or plan, please contact me at . MTDD
--- NOTE | 2018-04-24 08:43 | PT PLAN OF CARE ---
Physician: Dr. Joan Soto Patient is being seen: 2x/week Therapist: Vira Grier, PT Medical Diagnosis: M25.511 Pain in R shoulder Treatment Diagnosis: Same Date of Onset: 08/24/17 Date of Initial Evaluation: 03/25/18 Date patient was last seen: 04/23/18 Number of treatments: 10 Number of cancellations/No shows: 0 INTERVENTIONS: Manual Therapy, Strengthening, Heat, Range of Motion, Stretching, Electrical Stim, Home Exercise Program GOALS/PATIENT'S GOAL: 4 weeks: Monalisa sleeps without R shoulder pain (met), carries 1 gallon of water with R shoulder pain 3/10 (progressing). 6 weeks: Monalisa carries 1 gallon of water without R shoulder pain. (not met) Patient Compliance: Excellent Prognosis: Excellent Reasons for continuing therapy: S: Monalisa rates R shoulder pain 0/10 at rest, at night, 3/10 with lifting a gallon of water, but is unable to lift it over the side of the grocery cart. Quick DASH 20% impairment Posture: Mild forward head, increased thoracic kyphosis, protracted R shoulder. ROM: A/PROM R shoulder WNL/WNL. Strength: Still: Supraspinatus 3+/5, pain limited, infraspinatus 4/5, IR 4+/5. Palpation: Tender rotator cuff and long head of biceps tendons. Special Tests: Improving mobility of the R shoulder joints, still tight anterior chest muscles. A/P: Monalisa Florez is improving R shoulder pain, ROM, and could benefit from continued PT to improve strength for lifting one gallon of water over the side of the grocery cart. If you agree, we'll continue 2x/week 4-6 weeks to goals set. Thank you. BORIS
--- NOTE | 2018-06-08 12:52 | PT PLAN OF CARE ---
Physician: Dr. Joan Soto Patient is being seen: 2x/week Therapist: Vira Grier PT Medical Diagnosis: M25.511 Pain in R shoulder Treatment Diagnosis: Same Date of Onset: 08/24/17 Date of Initial Evaluation: 03/25/18 Date patient was last seen: 06/08/18 Number of treatments: 20 Number of cancellations/No shows: 0] INTERVENTIONS: ROM/stretching, strengthening, HEP, heat GOALS/PATIENT'S GOAL: 4 weeks: Monalisa sleeps without R shoulder pain (met), carries 1 gallon of water with R shoulder pain 05/03 (met). 6 weeks: Monalisa carries 1 gallon of water without R shoulder pain. (progressing, -04/05) Patient Compliance: Excellent Prognosis: Excellent Reasons for continuing therapy: S: Monalisa relates she can now lift a gallon of water into the grocery cart with R shoulder pain -04/05. O: ROM: AROM R shoulder 135 degrees, scaption 145 degrees. Strength: Supraspinatus 4+/5, infraspinatus 5-/5, IR 5/5. Palpation: Non-tender rotator cuff and long head of biceps tendons. Special Tests: Improved joint mobility R shoulder joints. A/P: Monalisa Florez is improving function, needs more strengthening to alleviate pain with lifting 8 lb. If you agree, we'll continue at 2x/week, 4 weeks to goals set. Thank you. BORIS
== END 2018-06-23 ==
LOC: PT 09:45
PROVIDERS: ATTEND Family Medicine
DX: M25.511 Pain in right shoulder (principal)
CPT/HCPCS: 97010; 97032; 97110; 97140; 97162; G0283

== ENCOUNTER → 2018-07-01 | Outpatient (CLI) | payer MEDICARE ==
[2018-02-04 17:05] VITALS: BMI 33.4
[2018-07-01 11:33] LABS: PLATELET COUNT, AUTOMATED 198 K/uL (150-450)
== END ==
LOC: LAB 11:13
PROVIDERS: ATTEND Family Medicine
DX: I10 Essential (primary) hypertension (principal)
CPT/HCPCS: 36415; 82310; 82374; 82435; 82565; 82947; 84132; 84295; 84520; 85025

== ENCOUNTER → 2018-07-09 | Outpatient (CLI) | payer MEDICARE ==
[2018-02-04 17:05] VITALS: BMI 33.4
--- NOTE | 2018-07-10 14:07 | RADIOLOGY IMAGING REPORT ---
FACILITY: [facility] PATIENT NAME: LUCAS KERR : [id number] MR: [id number] V: [id number] EXAM DATE: [id number] ORDERING PHYSICIAN: ELVI ELIAS TECHNOLOGIST: Nicole Arellano PROCEDURE: BILATERAL DIGITAL SCREENING MAMMOGRAM WITH CAD ASSISTED INTERPRETATION & 3D TOMOSYNTHESIS REASON FOR STUDY: Screening FAMILY HISTORY OF BREAST CANCER: None BREAST PROCEDURES/TREATMENTS: None COMPARISON: 05/26/17, 05/21/16, 05/16/15, 04/14/14, 05/10/13, 05/07/12 VIEWS OBTAINED: Bilateral 2D & 3D full field CC & MLO BREAST DENSITY: There are scattered areas of fibroglandular density throughout the breasts. MAMMOGRAM FINDINGS: The parenchymal pattern has remained stable allowing for difference in mammographic technique & patient positioning. IMPRESSION: BIRADS 1: Negative. DIAGNOSTIC CATEGORY 1--NEGATIVE. RECOMMENDATIONS: ROUTINE MAMMOGRAM AND CLINICAL EVALUATION. Dictated by: Sangeetha Carrillo M.D. on 07/09/2018 at 16:26 Transcribed by: MICHAEL on 07/10/2018 at 13:07 Approved by: Sangeetha Carrillo M.D. on 07/10/2018 at 14:05 [facility]
== END ==
LOC: MAMO 00:14
PROVIDERS: ATTEND Family Medicine
DX: Z12.31 Encounter for screening mammogram for malignant neoplasm of breast (principal)
CPT/HCPCS: 77063; 77067

== ENCOUNTER 2018-07-16 09:45 | Outpatient (RCR) | payer MEDICARE ==
[2018-02-04 17:05] VITALS: BMI 33.4
--- NOTE | 2018-06-26 17:29 | PT PLAN OF CARE ---
Physician: Dr. Joan Soto Patient is being seen: 2x/week Therapist: Vira Grier, PT Medical Diagnosis: M25.511 Pain in R shoulder Treatment Diagnosis: Same Date of Onset: 08/24/17 Date of Initial Evaluation: 03/25/18 Date patient was last seen: 06/25/18 Number of treatments: 25 Number of cancellations/No shows: 0 INTERVENTIONS: Strengthening, Heat, Range of Motion/Stretching, Home Exercise Program GOALS/PATIENT'S GOAL: 4 weeks: Monalisa sleeps without R shoulder pain (met), carries 1 gallon of water with R shoulder pain 3/10 (met). 6 weeks: Monalisa carries 1 gallon of water without R shoulder pain. (progressing, 03/05) Patient Compliance: Excellent Prognosis: Excellent Reasons for continuing therapy: This is our business office's 3 month POC S: Monalisa reports she's now able to lift 1 gallon of water into her grocery cart with R shoulder pain /10, and when she lets go, the pain is over. Quick DASH 13%. Posture: Mild forward head, increased thoracic kyphosis, protracted R shoulder. ROM: A/PROM R shoulder WNL all directions. Strength: Supraspinatus 5-/5,, infraspinatus 5-/5, IR 5/5. Palpation: Unremarkable rotator cuff and long head of biceps tendons. Special Tests: Normal mobility R shoulder joints. A/P: Monalisa Florez is improving R shoulder lifting ability with less pain. If you agree, we'll continue at 2x/week for 2-3 weeks to finish functional strengthening for pain free 8 lb. water lifting with shopping. Thank you. BORIS
--- NOTE | 2018-07-17 12:59 | PT PLAN OF CARE ---
Physician: Dr. Joan Soto Patient is being seen: 2x/week Therapist: Vira Grier, NEERAJ Medical Diagnosis: M25.511 Pain in R shoulder Treatment Diagnosis: Same Date of Onset: 08/24/17 Date of Initial Evaluation: 03/25/18 Date patient was last seen: 07/16/18 Number of treatments: 31 Number of cancellations/No shows: 0 INTERVENTIONS: Manual Therapy, Strengthening, Heat, Range of Motion/Stretching, Home Exercise Program GOALS/PATIENT'S GOAL: 4 weeks: Monalisa sleeps without R shoulder pain (met), carries 1 gallon of water with R shoulder pain 3/10 (met). 6 weeks: Monalisa carries 1 gallon of water without R shoulder pain. (met) Patient Compliance: Excellent Prognosis: Excellent Reasons for discontinuing therapy: S: Monalisa reports she is lifting and carrying 1 gallon of water without R shoulder pain. O: ROM: A/PROM R shoulder WNL/WNL, pain free. Palpation: Unremarkable to the R shoulder. Strength: R rotator cuff, biceps 5/5. Special Tests: R shoulder joints mobility WNL. A/P: Monalisa Florez has improved ROM, strength, lifting function without R shoulder pain. I'll DC PT to HEP. Thank you. BORIS
== END 2018-07-16 18:00 | disposition home or self-care (01) ==
LOC: PT 09:45
PROVIDERS: ATTEND Family Medicine
DX: M25.511 Pain in right shoulder (principal)

== ENCOUNTER → 2018-09-15 | Outpatient (CLI) | payer MEDICARE ==
[2018-02-04 17:05] VITALS: BMI 33.4
[~2018-09-15] MED LIST changes: -RANI-366 PO; +RANI-54 PO
[2018-09-15 16:27] LABS: PLATELET COUNT, AUTOMATED 208 K/uL (150-450)
== END ==
LOC: LAB 15:55
PROVIDERS: ATTEND Family Medicine
DX: E11.9 Type 2 diabetes mellitus without complications (principal); I10 Essential (primary) hypertension
CPT/HCPCS: 36415; 82310; 82374; 82435; 82565; 82947; 83036; 84132; 84295; 84520; 85025